=== PATIENT | male | born 1960 | race Caucasian/White ===

== ENCOUNTER 2016-08-15 12:55 | Inpatient (IN) | payer BC, OTHER ==
--- NOTE | 2016-08-15 13:18 | EDPHY ---
H & P Time Seen by Provider: 08/15/16 13:17 HPI/ROS: CHIEF COMPLAINT: Fluid retention HISTORY OF PRESENT ILLNESS: History from patient and . He has a history of cardiomyopathy with ejection fraction about 40% on echo 14 months ago. He was treated by initially Dr. Fox and then by Wilner Talavera. Over the last month he has gained about 50 lb. He is noted swelling in his legs and intermittent shortness of breath. Symptoms moderate to severe but not associated with syncope or coughing. Not positional. No chest pain. No fever or chills. REVIEW OF SYSTEMS: Eye: no change in vision ENT: no sore throat Cardiac: no chest pain or syncope Pulmonary: HPI Abdomen: no vomiting, diarrhea, abdominal pain Musculoskeletal: no back pain Skin: Intermittent brown itchy skin rash on the sides of his abdomen. Neuro: no headache Constitutional: no fever : no urinary symptoms A comprehensive 10 point review of systems is otherwise negative aside from elements mentioned in the history of present illness. PAST MEDICAL HISTORY: Includes cardiomyopathy, type 2 diabetes, hypertension. Social history: , nonsmoker General Appearance: Alert and conversant, cooperative. Eyes: No scleral icterus. ENT, Mouth: Normal mucous membranes. Respiratory: Crackles at both bases but speaks in full sentences, oxygen saturation 83% on room air. Cardiovascular: Irregular rate and rhythm. Gastrointestinal: Abdomen is soft and non tender. Neurological: Alert and oriented x3. Normally conversant. Face symmetric, normal movement and sensation in all extremities. Skin: Venous stasis changes both legs, scattered brownish rash on both flanks. No zoster. Musculoskeletal: 4+ bilateral pedal edema. Psychiatric: Not agitated. Emergency Department course/MDM: Called by Dr. Barbour at 11:40 a.m. prior to arrival. Plan for chest x-ray, EKG. Discussion about anticoagulation given atrial fibrillation. Admission for echocardiography and cardiology consultation, probable diuresis. Dulce from pharmacy at 1340; discussed optimal anticoagulation strategy for afib with patient's weight; she recommends Lovenox 150 mg sq. Admission to hospitalist service. Seen by Dr. Arriaga in the emergency department. Smoking Status: Never smoked Constitutional: Initial Vital Signs Temperature (C) 36.5 C 08/15/16 12:59 Heart Rate 50 L 08/15/16 12:59 Respiratory Rate 18 08/15/16 12:59 Blood Pressure 135/67 H 08/15/16 12:59 O2 Sat (%) 94 08/15/16 12:59 O2 Delivery Mode Room Air Allergies/Adverse Reactions: morphine [Morphine] Allergy (Mild, Verified 04/23/09 13:17) Vomiting Penicillins Allergy (Mild, Verified 04/23/09 13:17) Rash Sulfa (Sulfonamide Antibiotics) Allergy (Mild, Verified 04/23/09 13:17) Rash Home Medications: Medication Instructions Recorded Aspirin [Aspirin 81mg (*)] 81 mg PO HS 04/11/09 Atorvastatin Calcium [Lipitor 20 20 mg PO HS 04/11/09 mg (*)] Digoxin [Lanoxin 250 mcg (RX)] 250 mcg PO HS 04/11/09 Insulin Glargine [Lantus 100 90 units SC HS 04/11/09 UNITS/ML (*)] Lisinopril [Zestril 10 mg (*)] 10 mg PO DAILY 04/11/09 metFORMIN HCL [Glucophage 1000 mg] 1,000 mg PO BIDMEAL 04/11/09 Allopurinol [Allopurinol 300 MG 300 mg PO DAILY 08/15/16 (RX)] Carvedilol [Coreg (*)] 50 mg PO BIDMEAL 08/15/16 Cholecalciferol Vit D3 [Vitamin D3 1,000 units PO DAILY 08/15/16 (*)] Furosemide [Lasix 20 MG (*)] 20 mg PO DAILY 08/15/16 Ibuprofen [Motrin (*)] 800 mg PO DAILY 08/15/16 Insulin Lispro [humALOG LISPRO 100 15 - 40 unit SC TIDMEAL 08/15/16 units/ml (*)] Multivitamins [Multivitamin (*)] 1 each PO DAILY 08/15/16 [place]-3 Fatty Acids [Fish Oil 1000 1,000 mg PO DAILY 08/15/16 mg (*)] amLODIPine BESYLATE [Norvasc 10 mg 10 mg PO DAILY 08/15/16 (*)] Medical Decision Making - Diagnostics EKG Interpretation: 12-lead EKG interpreted by me; official reading is in trace master. My interpretation is atrial fibrillation, PVC, intraventricular conduction delay. Imaging Results: Imaging Impressions Chest X-Ray 08/15/16 13:30 Impression: [id number] CHF. Differential Diagnosis: Differential diagnosis considered for shortness of breath including but not limited to pulmonary infectious process, COPD, asthma, pulmonary embolus and congestive heart failure. Consult/Admit Bed Type: [facility] 134 - Data Points Laboratory Results: Laboratory Results 08/15/16 13:20 08/15/16 13:20 08/15/16 08/15/16 08/15/16 13:20 13:20 13:20 WBC 13.97 10^3/uL H 10^3/uL (3.80-9.50) RBC 5.04 10^6/uL 10^6/uL (4.40-6.38) Hgb 14.7 g/dL g/dL (13.7-17.5) Hct 45.5 % % (40.0-51.0) MCV 90.3 fL fL (81.5-99.8) MCH 29.2 pg pg (27.9-34.1) MCHC 32.3 g/dL L g/dL (32.4-36.7) RDW 15.8 % H % (11.5-15.2) Plt Count 203 10^3/uL 10^3/uL (150-400) MPV 10.3 fL fL (8.7-11.7) Neut % (Auto) 80.1 % H % (39.3-74.2) Lymph % (Auto) 11.1 % L % (15.0-45.0) [place] % (Auto) 6.8 % % (4.5-13.0) Eos % (Auto) 1.0 % % (0.6-7.6) Baso % (Auto) 0.6 % % (0.3-1.7) Nucleat RBC Rel Count 0.0 % % (0.0-0.2) Absolute Neuts (auto) 11.20 10^3/uL H 10^3/uL (1.70-6.50) Absolute Lymphs (auto) 1.55 10^3/uL 10^3/uL (1.00-3.00) Absolute Monos (auto) 0.95 10^3/uL H 10^3/uL (0.30-0.80) Absolute Eos (auto) 0.14 10^3/uL 10^3/uL (0.03-0.40) Absolute Basos (auto) 0.08 10^3/uL 10^3/uL (0.02-0.10) Absolute Nucleated RBC 0.00 10^3/uL 10^3/uL (0-0.01) Immature Gran % 0.4 % % (0.0-1.1) Immature Gran # 0.05 10^3/uL 10^3/uL (0.00-0.10) PT 14.9 SEC SEC (12.0-15.0) INR 1.17 H (0.83-1.16) Sodium 141 mEq/L mEq/L (134-144) Potassium 4.3 mEq/L mEq/L (3.5-5.2) Chloride 111 mEq/L H mEq/L (97-110) Carbon Dioxide 19 mEq/l L mEq/l (22-31) Anion Gap 11 mEq/L mEq/L (8-16) BUN 34 mg/dL H mg/dL (7-23) Creatinine 1.4 mg/dL H mg/dL (0.7-1.3) Estimated GFR 53 Glucose 159 mg/dL H mg/dL (70-100) Calcium 8.8 mg/dL mg/dL (8.5-10.4) Troponin I 0.028 ng/mL ng/mL (0-0.034) NT-Pro-B Natriuret Pep 2330 pg/mL H pg/mL (0-125) Medications Given: Discontinued Medications Enoxaparin Sodium (Lovenox) 150 mg SC EDNOW ONE Stop: 08/15/16 13:47 Last Admin: 08/15/16 13:59 Dose: 150 mg Departure - Departure Disposition: [facility] Clinical Impression: Congestive heart failure Qualifiers: Congestive heart failure type: unspecified congestive heart failure type Congestive heart failure chronicity: acute on chronic Qualified Code(s): I50.9 - Heart failure, unspecified Atrial fibrillation Qualifiers: Atrial fibrillation type: unspecified Qualified Code(s): I48.91 - Unspecified atrial fibrillation Condition: Fair
--- NOTE | 2016-08-15 13:22 | CPEKG ---
Heart Rate: 67 RR Interval: 896 QRSD Interval: 116 QT Interval: 396 QTC Interval: 418 QRS [place]: -71 T Wave [place]: 127 EKG Severity - ABNORMAL ECG - EKG Impression: ATRIAL FIBRILLATION EKG Impression: MULTIFORM VENTRICULAR PREMATURE COMPLEXES EKG Impression: NONSPECIFIC IVCD WITH LAD EKG Impression: INFERIOR INFARCT, AGE INDETERMINATE EKG Impression: ANTERIOR INFARCT, AGE INDETERMINATE Electronically Signed By: Flavio Boone 15-Aug-2016 14:41:39
[2016-08-15 13:37] LABS: % IMMATURE GRANULYOCYTES 0.4 % (0.0-1.1); ABSOLUTE IMMATURE GRANULOCYTES 0.05 10^3/uL (0.00-0.10); ADD DIFF? NO; ADD MORPH? NO; ADD SCAN? NO; ATYPICAL LYMPHOCYTE FLAG 0 (0-99); FRAGMENT RBC FLAG 0 (0-99); HEMATOCRIT 45.5 % (40.0-51.0); HEMOGLOBIN 14.7 g/dL (13.7-17.5); LEFT SHIFT FLG 0 (0-99); LIPEMIA HEMOLYSIS FLAG 80 (0-99); MEAN CELL HEMOGLOBIN 29.2 pg (27.9-34.1); MEAN CELL HEMOGLOBIN CONCENTR. 32.3 g/dL (32.4-36.7); MEAN CELL VOLUME 90.3 fL (81.5-99.8); MEAN PLATELET VOLUME 10.3 fL (8.7-11.7); PLATELET CLUMPS FLAG 0 (0-99); PLATELET COUNT 203 10^3/uL (150-400); RED BLOOD CELL COUNT 5.04 10^6/uL (4.40-6.38); RED CELL DISTRIBUTION WIDTH 15.8 % (11.5-15.2)
[2016-08-15] MEDS ORDERED: ENOXAPARIN 150 MG/ML SYR SC ONE (13:46)
[2016-08-15 13:48] LABS: INR 1.17 (0.83-1.16); PROTIME(PATIENT) 14.9 SEC (12.0-15.0)
[2016-08-15 13:51] LABS: ANION GAP 11 mEq/L (8-16); CALCIUM 8.8 mg/dL (8.5-10.4); CARBON DIOXIDE 19 mEq/l (22-31); CHLORIDE 111 mEq/L (97-110); CREATININE 1.4 mg/dL (0.7-1.3); GLOMERULAR FILTRATION RATE 53; GLUCOSE 159 mg/dL (70-100); POTASSIUM 4.3 mEq/L (3.5-5.2); SODIUM 141 mEq/L (134-144)
[2016-08-15 14:02] LABS: TROPONIN I 0.028 ng/mL (0-0.034)
[2016-08-15] MEDS ORDERED: ONDANSETRON DISINTEGRATING 4 MG TAB PO PRN (15:26)
[2016-08-15] MEDS ORDERED: ONDANSETRON 4 MG/2 ML VIAL IVP PRN (15:26)
[2016-08-15] MEDS: FUROSEMIDE 40 MG/4 ML VIAL IVP SCH (16:00)
--- NOTE | 2016-08-15 17:15 | GHP ---
[f rep st] HISTORY AND PHYSICAL DATE OF ADMISSION: 08/15/2016 CHIEF COMPLAINT: Swelling. HISTORY OF PRESENT ILLNESS: This is a 56-year-old male with multiple medical comorbidities includin g a long-standing cardiomyopathy, hypertension, diabetes, who presents with progressive weight gain, abdominal girth distention, and lower extremity edema which he reports has been occurring over the course of the last month. His reports it has been occurring over the last 4 months. The patie nt reports that he is close to 40 to 50 pounds up from what he believes is more appropriately his dr y weight. He has experienced increased dyspnea on exertion, orthopnea. He denies any chest pain. Denies any palpitations. Denies any headache, vision changes, dizziness. Denies any diarrhea, bloo d in his stools, dysuria, or hematuria. He has been experiencing notable lower extremity edema, whi ch at times can be uncomfortable. He has terrible osteoarthritic knees which has been quite a chall enge in the setting of increased weight gain. He is now ambulating with two canes rather than indep endently. PAST MEDICAL HISTORY: 1. Cardiomyopathy, managed by Dr. Talavera and Dr. Fox. 2. Diabetes mellitus. 3. Hypertension. 4. Gout. 5. Hyperlipidemia. 6. Obstructive sleep apnea. 7. Morbid obesity. SOCIAL HISTORY: Negative for tobacco, alcohol, or illicit drugs. FAMILY HISTORY: Positive for diabetes. ADVANCED DIRECTIVES: The patient wishes to be full cor, full tube. His would be his medical d ecision maker. REVIEW OF SYSTEMS: A 10-point review of systems is negative with the exception of that reported in the HPI. PHYSICAL EXAMINATION: VITAL SIGNS: Blood pressure 129/75, heart rate 63, respiratory rate 16, satu rating 91% on 5 L, 36.4. GENERAL: This is an obese male, sitting up in bed. HEENT: Notable for a lot of redundant neck tissue. Mucous membranes are moist. Eye exam is negative for any icterus. CARDIAC: Heart sounds are distant, but irregular. PULMONARY: Has good respiratory effort. Has cr ackles at bilateral bases. GASTROINTESTINAL: The patient has marked abdominal distention. Positiv e bowel sounds, is nontender in all 4 quadrants. MUSCULOSKELETAL: Positive for 3+ lower extremity edema. SKIN: Negative for any rashes. NEUROLOGIC: He is alert and oriented x3. PSYCHIATRIC: He is pleasant and cooperative on interview and examination. DATA: White count is 13.9. INR 1.1. Creatinine 1.4, last check 0.8 in January of 2016. BUN 34, glucose is 159, calcium 8.8. BNP 2330, last checked 83. Troponin 0.028. Chest x-ray, which I pers onally reviewed and interpreted, shows pulmonary vascular redistribution consistent with heart failu re. EKG, which I personally reviewed and interpreted, shows atrial fibrillation with an intraventri cular conduction delay and left axis deviation, no acute ST-T changes. ASSESSMENT AND PLAN: This is a 56-year-old male with a cardiomyopathy presenting with volume overlo ad. 1. Acute presumed biventricular heart failure. We do not have echo in the system. We will order o ne this evening and initiate IV diuretics carefully 40 mg b.i.d. as the patient does have a bump in his renal function since last checked. I have made Dr. Talavera aware of the patient's hospitalization. Will continue his cardiac medications, checking a digoxin level in the setting of acute kidney inj ury. I am hopeful if we can optimize his cardiac physiology, his renal function will improve. 2. Acute hypoxic respiratory failure, presumed secondary to volume overload secondary to heart fail ure. Again, will initiate careful IV diuresis and monitor the patient's progress with strict ins an d outs. 3. Acute leukocytosis. Not quite clear if this is truly a marker of infection as the patient has l imited symptoms. Will send a urinalysis. Chest x-rays unconcerning for pneumonia. 4. Diabetes type 2. The patient uses high doses of insulin at home which we will continue. I will send a hemoglobin A1c. Will cover with high-dose sliding scale in addition to his evening doses of Lantus. We will hold metformin as the patient may require imaging with contrast during this hospit al stay. 5. Atrial fibrillation. Patient denies having been diagnosed with atrial fibrillation in the past. He has received enoxaparin 150 mg in the emergency department. His [id number] score is quite el evated. He would qualify for long-term anticoagulation. Suspect a novel anticoagulant will be kaylyn mmended for him. Will wait until Dr. Talavera is able to see the patient before we initiate further blo od thinners. 6. Hypertension. Will continue his home medications minus the ROMAINE inhibitor in the setting of acut e kidney injury. 7. Acute kidney injury. Patient did describe taking higher doses of Lasix at home and I noticed NS AIDs on his medication list. It is very possible that this is multifactorial. It may be poor perfu malik from his heart failure as well. Would not be safe to fluid resuscitate this patient at this ti me. Will initiate careful diuresis and monitor his renal function closely. I am hopeful if we opti helen his cardiac parameters, we will see an improvement in his renal function. Have, again, ordered an ultrasound of his heart to better estimate his current ejection fraction. Will additionally ord er a renal ultrasound to make sure we are not dealing with an intrarenal process as well. Urinalysi s has been ordered as well. 8. Gout. Will continue his allopurinol. 9. Prophylaxis. The patient received enoxaparin. Will wait on additional until decisions related to atrial fibrillation, anticoagulation are made in the morning. DIET: Cardiac. DISPOSITION: I expect greater than 2 midnights as the patient likely will have many days of IV diur esis necessary to help manage his volume overload from acute heart failure. I have discussed the case with the emergency room physician. Patient will be triaged to the PCU for cardiac care. /[id number]/MODL
[2016-08-15] MEDS ORDERED: CARVEDILOL 25 MG TAB PO SCH (18:00)
[2016-08-15] MEDS ORDERED: D50W 25 GM/50 ML SYR IVP PRN (20:06)
[2016-08-15] MEDS ORDERED: DIGOXIN 250 MCG TAB PO SCH (21:00)
[2016-08-15] MEDS: ATORVASTATIN CALCIUM 20 MG TAB PO SCH (21:27)
[2016-08-15] MEDS: ASPIRIN 81 MG CHEWABLE TAB PO SCH (21:27)
[2016-08-15] MEDS: INSULIN GLARGINE 100 UNITS/ML SYRINGE SC SCH (21:27)
[2016-08-15] MEDS: INSULIN REGULAR HUMAN 100 UNIT/ML SC SCH (21:28)
[2016-08-16 05:23] LABS: % IMMATURE GRANULYOCYTES 0.3 % (0.0-1.1); ABSOLUTE IMMATURE GRANULOCYTES 0.03 10^3/uL (0.00-0.10); ADD DIFF? NO; ADD MORPH? NO; ADD SCAN? NO; ATYPICAL LYMPHOCYTE FLAG 0 (0-99); FRAGMENT RBC FLAG 0 (0-99); HEMATOCRIT 43.6 % (40.0-51.0); HEMOGLOBIN 13.7 g/dL (13.7-17.5); LEFT SHIFT FLG 0 (0-99); LIPEMIA HEMOLYSIS FLAG 80 (0-99); MEAN CELL HEMOGLOBIN 28.6 pg (27.9-34.1); MEAN CELL HEMOGLOBIN CONCENTR. 31.4 g/dL (32.4-36.7); MEAN PLATELET VOLUME 10.4 fL (8.7-11.7); PLATELET CLUMPS FLAG 0 (0-99); PLATELET COUNT 179 10^3/uL (150-400); RED BLOOD CELL COUNT 4.79 10^6/uL (4.40-6.38); RED CELL DISTRIBUTION WIDTH 15.7 % (11.5-15.2)
[2016-08-16 05:53] LABS: ANION GAP 10 mEq/L (8-16); CALCIUM 8.1 mg/dL (8.5-10.4); CARBON DIOXIDE 20 mEq/l (22-31); CHLORIDE 111 mEq/L (97-110); CREATININE 1.3 mg/dL (0.7-1.3); GLOMERULAR FILTRATION RATE 58; GLUCOSE 118 mg/dL (70-100); POTASSIUM 3.9 mEq/L (3.5-5.2); SODIUM 141 mEq/L (134-144)
[2016-08-16] MEDS: INSULIN REGULAR HUMAN 100 UNIT/ML SC SCH ×4 (07:45→21:34)
[2016-08-16] MEDS: FUROSEMIDE 40 MG/4 ML VIAL IVP SCH ×2 (08:17→15:42)
[2016-08-16] MEDS: MULTIVITAMINS 1 EACH TAB PO SCH (08:19)
[2016-08-16] MEDS: ALLOPURINOL 300 MG TAB PO SCH (08:20)
[2016-08-16] MEDS: OMEGA-3 FATTY ACIDS 1,000 MG CAP PO SCH (08:20)
[2016-08-16] MEDS: CHOLECALCIFEROL VIT D3 1,000 UNITS TAB PO SCH (08:21)
--- NOTE | 2016-08-16 10:33 | PDCARCONS ---
Cardiology Consult Reason for Consult: Acute congestive heart failure exacerbation Chief Complaint: Shortness of breath and weight gain Requesting Physician: Hospitalists History of Present Illness: Patient is a 56 y/o male with history of CMP (non ischaemic by angiography " many years ago", typically followed by [facility]) with ejection fraction of 40% by echocardiogram in the past, HTN, HLP, GENESIS with CPAP use, ARF (acute), DM ( ongoing work with endocrinology for better management; neuropathy has been noted without podiatry follow up), and obesity, who presented to [facility] with complaints of weight gain (about 50 pounds) over 6 weeks to 3 months ( variability given patient's report, and 's report), shortness of breath, PND , orthopnea, and weakness. Work up in the ER with newly noted atrial fibrillation (and slow ventricular response). No chest pains or pressure have been noted. Compliance with medical therapy has been good. Being that the patient is a [facility] patient we do not have the most recent outpatient notes, but the patient is able to give a good history. Last night, the patient was given Lasix IV at 40 mg with little to no change in weights (or urine output) overnight. One dose of Lovenox (150 mg) was given the ER with the newly noted atrial fibrillation ([id number] score of 3 for CHF , HTN, and DM). 12 point review of systems is otherwise unremarkable outside of that which was mentioned above History Information - Allergies/Home Medication List Allergies/Adverse Reactions: morphine [Morphine] Allergy (Mild, Verified 04/23/09 13:17) Vomiting Penicillins Allergy (Mild, Verified 04/23/09 13:17) Rash Sulfa (Sulfonamide Antibiotics) Allergy (Mild, Verified 04/23/09 13:17) Rash Home Medications: Aspirin [Aspirin 81mg (*)] 81 mg PO HS 04/11/09 [Last Taken 08/14/16] Atorvastatin Calcium [Lipitor 20 mg (*)] 20 mg PO HS 04/11/09 [Last Taken ] Digoxin [Lanoxin 250 mcg (RX)] 250 mcg PO HS 04/11/09 [Last Taken 08/14/16] Insulin Glargine [Lantus 100 UNITS/ML (*)] 90 units SC HS 04/11/09 [Last Taken 08/14/16] Lisinopril [Zestril 10 mg (*)] 10 mg PO DAILY 04/11/09 [Last Taken 08/15/16] metFORMIN HCL [Glucophage 1000 mg] 1,000 mg PO BIDMEAL 04/11/09 [Last Taken 07/27] Allopurinol [Allopurinol 300 MG (RX)] 300 mg PO DAILY 08/15/16 [Last Taken 08/15] Carvedilol [Coreg (*)] 50 mg PO BIDMEAL 08/15/16 [Last Taken 08/15/16] Cholecalciferol Vit D3 [Vitamin D3 (*)] 1,000 units PO DAILY 08/15/16 [Last Taken Unknown] Furosemide [Lasix 20 MG (*)] 20 mg PO DAILY 08/15/16 [Last Taken 08/15/16] Ibuprofen [Motrin (*)] 800 mg PO DAILY 08/15/16 [Last Taken 08/15/16] Insulin Lispro [humALOG LISPRO 100 units/ml (*)] 15 - 40 unit SC TIDMEAL [Last Taken 08/14/16] Multivitamins [Multivitamin (*)] 1 each PO DAILY 08/15/16 [Last Taken Unknown] [place]-3 Fatty Acids [Fish Oil 1000 mg (*)] 1,000 mg PO DAILY 08/15/16 [Last Taken Unknown] amLODIPine BESYLATE [Norvasc 10 mg (*)] 10 mg PO DAILY 08/15/16 [Last Taken 07/27] I have personally reviewed and updated: family history, medical history, social history, surgical history - Past Medical History arthritis, CHF, diabetes type 2, hypertension, hyperlipidemia Additional medical history: GENESIS, obesity - Surgical History Reports: no pertinent surgical hx - Family History Positive for: diabetes type II - Social History Smoking Status: Never smoked Alcohol Use: None Drug Use: None Cardiac History - Cardiac History Cardiac Risk Factors: hypertension (>140/90), lipidemia, diabetes mellitus, male Timing/Duration: Weeks Severity: moderate Severity Scale: 4 Activities at Onset: activity Modifying Factors: improves with: oxygen, rest Associated Symptoms: shortness of breath, weakness JUANPABLO Risk Evaluation age greater or equal to 65: no greater or equal to 3 CAD risk factors: yes known CAD(stenosis greater or eqaul to 50%): no ASA use in past 7 days: yes severe angina(greater or equal to 2 episodes in 24hrs): no EKG ST changes greater or equal to 0.5mm: no positive cardiac marker: no Total Score: 2 JUANPABLO Score: 8.3% risk Age in Years: < 65 Sex: Male (Score of 3 for CHF, HTN, and DM) Physical Exam Temp Pulse Resp BP Pulse Ox 36.3 C 56 L 15 125/64 H 92 08/16/16 07:46 08/16/16 07:46 08/16/16 07:46 08/16/16 07:46 08/16/16 07:46 O2 (L/minute) 5 Constitutional: no apparent distress, obese Eyes: PERRL Ears, Nose, Mouth, Throat: moist mucous membranes, hearing normal Cardiovascular: irregularly irregular, bradycardia, edema, No JVD Peripheral Pulses: 1+: dorsalis-pedis (R), dorsalis-pedis (L) Respiratory: no respiratory distress, reduced air movement, expiratory wheeze, dullness to percussion, No respiratory distress Gastrointestinal: soft, non-tender abdomen Skin: warm, No rash Musculoskeletal: full muscle strength Neurologic: AAOx3, sensation intact bilaterally, CN II-XII Intact Psychiatric: interacting appropriately, not anxious, not encephalopathic Lab and Imaging 08/16/16 05:10 08/16/16 05:10 WBC 10.10 10^3/uL (3.80-9.50) H 08/16/16 05:10 RBC 4.79 10^6/uL (4.40-6.38) 08/16/16 05:10 Hgb 13.7 g/dL (13.7-17.5) 08/16/16 05:10 Hct 43.6 % (40.0-51.0) 08/16/16 05:10 MCV 91.0 fL (81.5-99.8) 08/16/16 05:10 MCH 28.6 pg (27.9-34.1) 08/16/16 05:10 MCHC 31.4 g/dL (32.4-36.7) L 08/16/16 05:10 RDW 15.7 % (11.5-15.2) H 08/16/16 05:10 Plt Count 179 10^3/uL (150-400) 08/16/16 05:10 MPV 10.4 fL (8.7-11.7) 08/16/16 05:10 Neut % (Auto) 72.5 % (39.3-74.2) 08/16/16 05:10 Lymph % (Auto) 13.9 % (15.0-45.0) L 08/16/16 05:10 [place] % (Auto) 10.2 % (4.5-13.0) 08/16/16 05:10 Eos % (Auto) 2.6 % (0.6-7.6) 08/16/16 05:10 Baso % (Auto) 0.5 % (0.3-1.7) 08/16/16 05:10 Nucleat RBC Rel Count 0.0 % (0.0-0.2) 08/16/16 05:10 Absolute Neuts (auto) 7.33 10^3/uL (1.70-6.50) H 08/16/16 05:10 Absolute Lymphs (auto) 1.40 10^3/uL (1.00-3.00) 08/16/16 05:10 Absolute Monos (auto) 1.03 10^3/uL (0.30-0.80) H 08/16/16 05:10 Absolute Eos (auto) 0.26 10^3/uL (0.03-0.40) 08/16/16 05:10 Absolute Basos (auto) 0.05 10^3/uL (0.02-0.10) 08/16/16 05:10 Absolute Nucleated RBC 0.00 10^3/uL (0-0.01) 08/16/16 05:10 Immature Gran % 0.3 % (0.0-1.1) 08/16/16 05:10 Immature Gran # 0.03 10^3/uL (0.00-0.10) 08/16/16 05:10 PT 14.9 SEC (12.0-15.0) 08/15/16 13:20 INR 1.17 (0.83-1.16) H 08/15/16 13:20 Sodium 141 mEq/L (134-144) 08/16/16 05:10 Potassium 3.9 mEq/L (3.5-5.2) 08/16/16 05:10 Chloride 111 mEq/L (97-110) H 08/16/16 05:10 Carbon Dioxide 20 mEq/l (22-31) L 08/16/16 05:10 Anion Gap 10 mEq/L (8-16) 08/16/16 05:10 BUN 34 mg/dL (7-23) H 08/16/16 05:10 Creatinine 1.3 mg/dL (0.7-1.3) 08/16/16 05:10 Estimated GFR 58 08/16/16 05:10 Glucose 118 mg/dL (70-100) H 08/16/16 05:10 POC Glucose 125 mg/dL (70-100) H 08/16/16 02:47 Calcium 8.1 mg/dL (8.5-10.4) L 08/16/16 05:10 Troponin I 0.026 ng/mL (0-0.034) 08/15/16 18:05 NT-Pro-B Natriuret Pep 2330 pg/mL (0-125) H 08/15/16 13:20 TSH 2.520 uIU/mL (0.465-4.680) 08/16/16 05:10 Digoxin 1.7 ng/mL (0.8-2.0) 08/15/16 16:05 Visualized and Interpreted Chest x-ray results: Yes Chest X-ray Interpretation: no infiltrate, other (cardiomegaly with effusion and evidence to suggest "mild to moderate" heart failure) EKG additional interpertation: atrial fibrillation with slow ventricular response Telemetry: atrial fibrillation with slow ventricular response Echocardiogram: cardiomyopathy with ejection fraction of 35-40%. no gross valve pathology was noted . there appears to be a large thrombus to the left ventricular apex. plan on definity study to better image the apex of the heart given the patient' s morphology/habitus A/P Assessment: 56 y/o male with history of non ischaemic CMP (EF 40%), HTN, DM, GENESIS with CPAP use, with admission for congestive heart failure exacerbation. Newly noted atrial fibrillation ([id number] score of 3) with single dose of Lovenox rendered in the ER. Echocardiogram without drop in systolic function noted, but with concerning echo evidence for left ventricular apical thrombus. Weight gain of over 40 pounds over several months. No chest pains. No ECG changes consistent with ischamia. No cardiac biomarker elevation. Plan: Cardiovascular recommendations: (1) Cessation of digoxin (2) Hold on Coreg (likely resumption at lower dose ... 25 mg twice per day) - given bradycardia at present in setting of "acute" CHF, would refrain from this therapy at present (3) IV lasix at 80 mg (from 40 mg) - close I/O following - daily weights (4) Concerns about LV apical thrombus being addressed with Definity echo assessment (5) Lovenox 150 mg SQ twice per day (6) Would maintain therapy on norvasc (10 mg) for the time being for assistance with HTN (7) Continue therapy on ASA given CV risks (8) Statins to continue with HLP history (9) Would arrange for Isi MPI - patient likely will need an angiogram, but would diuresis and monitor renal function - no indication for emergent angiography, but patient's CV risks (age, sex, HTN , HLP, DM, "new" CHF), this testing is likely indicated - - use of the MPI to "map" the patient's coronary anatomy prior to pursuit of invasive CV testing (10) Maintain CPAP use with GENESIS - this being a large risk for the ongoing atrial fibrillation (11) We will continue to follow this patient
[2016-08-16] MEDS ORDERED: PERFLUTREN LIPID MICROSPHERES 1.1 MG/ML VIAL IV ONE (10:45)
[2016-08-16] MEDS ORDERED: FUROSEMIDE 40 MG/4 ML VIAL IVP ONE (11:02)
--- NOTE | 2016-08-16 11:21 | HOSPPROG ---
Hospitalist Progress Note Assessment/Plan: # acute on chronic CHF, systolic and diastolic - d/t a-fib, possible ischemia with new akinetic apex - possible LV thrombus - lovenox, repeat echo with definity - akinetic apex - needs ischemic eval per cards - more aggressive diuresis today - cont lasix 40 iv bid, additional lasix 40 iv today - hold coreg/digoxin with bradycardia # DM2 - glargine 90, glucs ok # NIA - follow with diuresis - no nephrotixins, consider dose reduce allopurinol and lovenox # chronic gout - allopurinol # htn - hold lisino, cont norvasc # leukocytosis - d/t stress, doubt infection Subjective: not responding to lasix since yesterday; no CP Objective: Vital Signs Temp Pulse Resp BP Pulse Ox 36.3 C 56 L 15 125/64 H 92 08/16/16 07:46 08/16/16 07:46 08/16/16 07:46 08/16/16 07:46 08/16/16 07:46 Laboratory Results 08/16/16 05:10 08/16/16 05:10 08/15/16 08/16/16 08/17/16 05:59 05:59 05:59 Intake Total 750 240 Output Total 625 375 Balance 125 -135 PT 14.9 SEC (12.0-15.0) 08/15/16 13:20 INR 1.17 (0.83-1.16) H 08/15/16 13:20 new pt to me discussed with Dr Cerda CXR personally viewed/interpreted - Physical Exam Constitutional: other (anasarca) Cardiovascular: no murmur, rub, or gallop, irregularly irregular Respiratory: no respiratory distress, no rales or rhonchi, clear to auscultation Gastrointestinal: normoactive bowel sounds, soft, non-tender abdomen, no palpable masses ICD10 Worksheet Patient Problems: Problems Problem Status Onset Atrial fibrillation Acute Congestive heart failure Acute
--- NOTE | 2016-08-16 14:34 | ECHO ---
[id number] + + [address] : : [place] [address] : : [phone] + Adult Echocardiographic Report + -----+ :Name: DEE BUTTERFIELD LStudy Date: 08/16/2016 08:31 AM : : Hospital Admission Number: [id number] Location : 223: :: 1960 Gender: Male Height: 63 in : :Age: 56 yrs Race: WH Weight: 315 lb : :Reason For Study: Eval LV Fx : : BSA: 2.3 meters2 : :History: Edema, New onset A-fib : + -----+ MMode/2D Measurements \T\ Calculations IVSd: 1.4 cm LVIDd: 6.8 cm FS: 21.9 % Ao root diam: 3.6 cm LVPWd: 1.3 cm LVIDs: 5.3 cm EDV(Teich): 240.2 ml ACS: 2.4 cm ESV(Teich): 136.7 ml EF(Teich): 43.1 % Normal Measurement Values: + + :LVIDd (3.5-5.7cm) IVSd (0.6-1.1cm) LVPWd (0.6-1.1cm) Aortic Root (2.0-3.7cm)Left Atrium (1.5-4.0cm): :LV Vol(d) (76-115ml) LV Vol(s) (29-48ml) Ejec Fraction (50-65%)PV Layo (0.6- 1.2m/s) TV Layo (0.4-1.0m/s) : :MV E Layo (0.8-1.0m/s)MV A Layo (0.3-1.0m/s)LVOT Layo (0.7-1.2m/s) Asc Ao Layo ( 0.9-1.8m/s) : + + Doppler Measurements \T\ Calculations MV E max layo: Ao V2 max: LV V1 max: PA V2 max: 124.4 cm/sec 119.4 cm/sec 65.6 cm/sec 101.8 cm/sec MV A max layo: Ao max PG: LV V1 max PG: PA max P.8 cm/sec 5.7 mmHg 1.7 mmHg 4.1 mmHg MV E/A: 2.3 Left Ventricle The left ventricle is normal in size. Definity imaging enhancer was utilitzed and there is on evidence of apical thrombus. There is mild concentric left ventricular hypertrophy. Ejection Fraction = 40%. There is Doppler evidence for diastolic dysfunction. The rhythm is atrial fibrillation. apical hypokinesis. Right Ventricle The right ventricle is normal in size and function. Atria The left atrium is mildly dilated. The right atrium is borderline dilated. Mitral Valve The mitral valve is normal. There is no mitral regurgitation noted. Tricuspid Valve Normal tricuspid valve. No tricuspid regurgitation. Aortic Valve The aortic valve opens well. There is no aortic stenosis. There is no aortic insufficiency. Pulmonic Valve The pulmonic valve is not well visualized. Great Vessels The aortic root is normal size. Pericardium/Pleural There is no pericardial effusion. Conclusion A complete two-dimensional transthoracic echocardiogram was performed (2D, M-mode, Doppler and color flow Doppler). (1) Left ventricular systolic ejection fraction was mildly reduced (40%) - apical hypokinesis was noted (2) Mild concentric left ventricular hypertrophy (3) Diastolic dysfunction was present - patient was in atrial fibrillation (with slow ventricular response) over the course of this study (4) Grossly normal right ventricular size and function (5) Mild left atrial dilation with borderline right atrial dilation (6) No mitral regurgitation (7) Poor visualization of the aortic valve (likely trileaflet) without appreciable stenosis or insufficiency noted (8) Grossly normal tricuspid valve (9) Poor visualization of the pulmonic valve (10) No pericardial effusion Final Reading Physician: Sherley Grissom signed on 08/16/2016 02:32 PM Ordering Physician: Gracia Arriaga Performed By: Quinton Canales, ROBINSONCS
[2016-08-16] MEDS: ATORVASTATIN CALCIUM 20 MG TAB PO SCH (21:33)
[2016-08-16] MEDS: ASPIRIN 81 MG CHEWABLE TAB PO SCH (21:33)
[2016-08-16] MEDS: INSULIN GLARGINE 100 UNITS/ML SYRINGE SC SCH (21:33)
[2016-08-16] MEDS: ENOXAPARIN 150 MG/ML SYR SC SCH (21:34)
[2016-08-17 05:50] LABS: ANION GAP 9 mEq/L (8-16); CALCIUM 8.1 mg/dL (8.5-10.4); CARBON DIOXIDE 23 mEq/l (22-31); CHLORIDE 112 mEq/L (97-110); CREATININE 1.1 mg/dL (0.7-1.3); GLOMERULAR FILTRATION RATE > 60; GLUCOSE 68 mg/dL (70-100); POTASSIUM 3.7 mEq/L (3.5-5.2); SODIUM 144 mEq/L (134-144)
[2016-08-17] MEDS: INSULIN REGULAR HUMAN 100 UNIT/ML SC SCH ×4 (08:19→21:27)
[2016-08-17] MEDS: OMEGA-3 FATTY ACIDS 1,000 MG CAP PO SCH (09:09)
[2016-08-17] MEDS: CHOLECALCIFEROL VIT D3 1,000 UNITS TAB PO SCH (09:09)
[2016-08-17] MEDS: ALLOPURINOL 300 MG TAB PO SCH (09:09)
[2016-08-17] MEDS: FUROSEMIDE 40 MG/4 ML VIAL IVP SCH ×2 (09:09→16:43)
[2016-08-17] MEDS: MULTIVITAMINS 1 EACH TAB PO SCH (09:09)
[2016-08-17] MEDS: ENOXAPARIN 150 MG/ML SYR SC SCH ×2 (09:09→20:22)
--- NOTE | 2016-08-17 10:45 | HOSPPROG ---
Hospitalist Progress Note Assessment/Plan: # acute on chronic CHF, systolic and diastolic - d/t a-fib, possible ischemia with new akinetic apex - no LV thrombus after definity echo - akinetic apex - needs ischemic eval per cards - more aggressive diuresis today - cont lasix 40 iv bid, additional lasix 40 iv today - hold coreg/digoxin with bradycardia - need to restart lisinopril - possibly tomorrow and check renin/tata before # sister with hyperAldo # DM2 - glargine 90, glucs ok # NIA - better with diuresis - no nephrotoxins, consider dose reduce allopurinol and lovenox # chronic gout - allopurinol # htn - hold lisino, cont norvasc # leukocytosis - d/t stress, doubt infection Subjective: legs feel slightly better Objective: Vital Signs Temp Pulse Resp BP Pulse Ox 36.5 C 61 24 H 128/91 H 91 L 08/17/16 08:00 08/17/16 08:00 08/17/16 08:00 08/17/16 08:00 08/17/16 08:00 Laboratory Results 08/16/16 05:10 08/17/16 05:00 08/16/16 08/17/16 08/18/16 05:59 05:59 05:59 Intake Total 750 1640 Output Total 625 2875 200 Balance 125 -1235 -200 PT 14.9 SEC (12.0-15.0) 08/15/16 13:20 INR 1.17 (0.83-1.16) H 08/15/16 13:20 - Physical Exam Constitutional: no apparent distress, other (anasarca) Cardiovascular: regular rate and rhythym, no murmur, rub, or gallop Respiratory: no respiratory distress, inspiratory crackles (bilat bases), No reduced air movement, No expiratory wheeze Gastrointestinal: normoactive bowel sounds, ascites, distension, No tenderness ICD10 Worksheet Patient Problems: Problems Problem Status Onset Congestive heart failure Acute Atrial fibrillation Acute
--- NOTE | 2016-08-17 15:14 | PDCARPN ---
Cardiology Progress Note Chief Complaint: No complaints were voiced today. Assessment/Plan: Assessment: 08-17-16 Patient doing well today. Weight loss overnight of about 1.2 kg. Patient was working with PT this morning. Ambulation in the sewell has been well tolerated. No complaints of chest pains or pressure. Heart rates on telemetry have improved (from low 50's to 70's today). Ongoing hold on the Coreg and digoxin. Further improvement in renal function has been noted (Cr to 1.2 today). 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 with complaints of weight gain (about 50 pounds) over 6 weeks to 3 months ( variability given patient's report, and 's report), shortness of breath, PND , orthopnea, and weakness. Work up in the ER with newly noted atrial fibrillation (and slow ventricular response). No chest pains or pressure have been noted. Compliance with medical therapy has been good. Being that the patient is a [facility] [place] we do not have the most recent outpatient notes, but the patient is able to give a good history. Last night, the patient was given Lasix IV at 40 mg with little to no change in weights (or urine output) overnight. One dose of Lovenox (150 mg) was given the ER with the newly noted atrial fibrillation ([id number] score of 3 for CHF , HTN, and DM). Plan: (1) Would continue the higher dose of lasix in the mornings (2) Follow electrolytes (3) Strict ins and outs and daily weights (4) Ambulation to continue as this is helpful for mobilization of fluids as well (5) Maintain hold on Coreg and Digoxin for the time being (6) Patient should still have MPI testing prior to discharge, and would also consider angiography given the CV risks and the presentation ("new" CHF) Subjective: No cardiovascular complaints Reviewed/Discussed With: family, hospitalist, multidisciplinary team Objective: Vital Signs (8 Hrs) Temp Pulse Resp BP Pulse Ox 08/17/16 12:00 36.5 C 72 11 L 138/75 H 94 08/17/16 08:00 36.5 C 61 24 H 128/91 H 91 L Intake/Output (24 Hrs) 08/16/16 08/17/16 08/18/16 05:59 05:59 05:59 Intake Total 750 1640 Output Total 625 2875 450 Balance 125 -1235 -450 Intake: Oral (ml) 750 1640 Output: Urine (ml) 625 2875 450 Urinal 625 2875 450 Other: Weight 138.8 kg 137.7 kg Intake Quantity Yes Yes Sufficient Number of Voids Urinal 1 1 2 Number of Stools Urinal 1 Result Diagrams: 08/16/16 05:10 08/17/16 05:00 Cardiac Labs: Cardiac Lab Results (72 Hrs) 08/15/16 18:05 Troponin I 0.026 EKG: atrial fibrillation with controlled ventricular response Telemetry: atrial fibrillation - Physical Exam Constitutional: healthy appearing, obese Eyes: PERRL Ears, Nose, Mouth, Throat: moist mucous membranes Cardiovascular: no murmurs, no rubs, no gallops, irregularly irregular Peripheral Pulses: 2+: dorsalis-pedis (R), dorsalis-pedis (L) Respiratory: no crackles, no wheezes, reduced air movement Gastrointestinal: normoactive bowel sounds Skin: no rashes, other (ongoing edema noted to bilateral lower extremities) Musculoskeletal: no muscular tenderness Neurologic: AAOx3, CN II-XII grossly intact Psychiatric: cooperative, interactive, following commands ICD10 Worksheet Patient Problems: Problems Problem Status Onset Atrial fibrillation Acute Congestive heart failure Acute
[2016-08-17] MEDS ORDERED: POTASSIUM CL 20 MEQ TAB PO ONE (16:00)
[2016-08-17] MEDS: ASPIRIN 81 MG CHEWABLE TAB PO SCH (20:22)
[2016-08-17] MEDS: ATORVASTATIN CALCIUM 20 MG TAB PO SCH (20:22)
[2016-08-17] MEDS: ACETAMINOPHEN 325 MG TAB PO PRN (20:27)
[2016-08-17] MEDS: INSULIN GLARGINE 100 UNITS/ML SYRINGE SC SCH (21:27)
[2016-08-18] MEDS: INSULIN REGULAR HUMAN 100 UNIT/ML SC SCH ×4 (08:11→21:23)
[2016-08-18] MEDS: OMEGA-3 FATTY ACIDS 1,000 MG CAP PO SCH (08:28)
[2016-08-18] MEDS: ENOXAPARIN 150 MG/ML SYR SC SCH ×2 (08:28→20:40)
[2016-08-18] MEDS: ALLOPURINOL 300 MG TAB PO SCH (08:28)
[2016-08-18] MEDS: MULTIVITAMINS 1 EACH TAB PO SCH (08:28)
[2016-08-18] MEDS: CHOLECALCIFEROL VIT D3 1,000 UNITS TAB PO SCH (08:28)
[2016-08-18] MEDS: FUROSEMIDE 40 MG/4 ML VIAL IVP SCH ×2 (08:28→16:05)
--- NOTE | 2016-08-18 08:56 | HOSPPROG ---
Hospitalist Progress Note Assessment/Plan: # acute on chronic CHF, systolic and diastolic - d/t a-fib, possible ischemia with new akinetic apex: diuresing well - akinetic apex - needs ischemic eval per cards - cont lasix 40 iv bid - high risk medicine - holding dig and coreg - will d/w cards restarting coreg today - hold lisinopril - restart soon # sister with hyperAldo - check renin/tata # DM2 - hypoglycemic overnight - glargine 90->70 today # NIA - resolving; need to get labs today # chronic gout - allopurinol # htn - hold lisino, cont norvasc # leukocytosis - d/t stress, doubt infection Subjective: hypoglycemic and symptomatic overnight; responding to lasix Objective: Vital Signs Temp Pulse Resp BP Pulse Ox 36.6 C 71 23 H 135/81 H 92 08/18/16 07:44 08/18/16 07:44 08/18/16 07:44 08/18/16 07:44 08/18/16 07:44 Laboratory Results 08/16/16 05:10 08/17/16 05:00 08/17/16 08/18/16 08/19/16 05:59 05:59 05:59 Intake Total 1640 500 Output Total 2875 2775 Balance -1235 -2275 PT 14.9 SEC (12.0-15.0) 08/15/16 13:20 INR 1.17 (0.83-1.16) H 08/15/16 13:20 tele reviewed - a-fib - Physical Exam Constitutional: no apparent distress, appears nourished Cardiovascular: no murmur, rub, or gallop, irregularly irregular, edema (4+) Respiratory: no respiratory distress, inspiratory crackles (bila bases), No expiratory wheeze, No rhonchi Gastrointestinal: normoactive bowel sounds, soft, non-tender abdomen, no palpable masses ICD10 Worksheet Patient Problems: Problems Problem Status Onset Congestive heart failure Acute Atrial fibrillation Acute
[2016-08-18 09:36] LABS: ANION GAP 13 mEq/L (8-16); CALCIUM 8.4 mg/dL (8.5-10.4); CARBON DIOXIDE 24 mEq/l (22-31); CHLORIDE 108 mEq/L (97-110); CREATININE 0.9 mg/dL (0.7-1.3); GLOMERULAR FILTRATION RATE > 60; GLUCOSE 140 mg/dL (70-100); SODIUM 145 mEq/L (134-144)
--- NOTE | 2016-08-18 11:34 | PDCARPN ---
Cardiology Progress Note Chief Complaint: No complaints today. Assessment/Plan: Assessment: 08-18-16 No events overnight. Diuresis continues with weights down another 0.8 kg today. Patient statins that he has been voiding about once per hour. Heart rates are within the normal range. Renal function is normal at present. Electrolytes are normal. Blood pressures are normal. 08-17-16 Patient doing well today. Weight loss overnight of about 1.2 kg. Patient was working with PT this morning. Ambulation in the sewell has been well tolerated. No complaints of chest pains or pressure. Heart rates on telemetry have improved (from low 50's to 70's today). Ongoing hold on the Coreg and digoxin. Further improvement in renal function has been noted (Cr to 1.2 today). 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 Work up in the ER with newly noted atrial fibrillation (and slow ventricular response). No chest pains or pressure have been noted. Compliance with medical therapy has been good. Being that the patient is a [facility] patient we do not have the most recent outpatient notes, but the patient is able to give a good history. Last night, the patient was given Lasix IV at 40 mg with little to no change in weights (or urine output) overnight. One dose of Lovenox (150 mg) was given the ER with the newly noted atrial fibrillation ([id number] score of 3 for CHF , HTN, and DM). Plan: (1) Maintain lasix dosing as at present (2) Would begin low dose ACEi therapy given the blood pressures noted (3) Arrange for Isi MPI today if possible (4) Continue to follow BMP (electrolytes and renal function in particular) (5) Ambulation to continue Subjective: No cardiovascular complaints were voiced today. Reviewed/Discussed With: family, hospitalist, multidisciplinary team Objective: Vital Signs (8 Hrs) Temp Pulse Resp BP Pulse Ox 08/18/16 07:44 36.6 C 71 23 H 135/81 H 92 Intake/Output (24 Hrs) 08/17/16 08/18/16 08/19/16 05:59 05:59 05:59 Intake Total 1640 500 360 Output Total 2875 2775 Balance -1235 -7868 360 Intake: Oral (ml) 1640 500 360 Output: Urine (ml) 2875 2775 Urinal 2875 2775 Other: Weight 137.7 kg 136.9 kg Intake Quantity Yes Sufficient Number of Voids Urinal 1 2 Number of Stools Urinal 1 1 Result Diagrams: 08/16/16 05:10 08/18/16 08:57 Cardiac Labs: Cardiac Lab Results (72 Hrs) 08/15/16 18:05 Troponin I 0.026 Telemetry: atrial fibrillation continues (rates are controlled) - Physical Exam Constitutional: WDWN, no apparent distress, obese Eyes: PERRL, EOMI Ears, Nose, Mouth, Throat: moist mucous membranes Cardiovascular: no rubs, irregularly irregular Peripheral Pulses: 2+: dorsalis-pedis (R), dorsalis-pedis (L) Respiratory: clear to auscultate bilat, reduced air movement Gastrointestinal: normoactive bowel sounds, no tenderness Skin: erythema (to bilateral lower extremities) Musculoskeletal: no muscular tenderness Neurologic: AAOx3, CN II-XII grossly intact Psychiatric: cooperative, interactive, following commands ICD10 Worksheet Patient Problems: Problems Problem Status Onset Atrial fibrillation Acute Congestive heart failure Acute
[2016-08-18] MEDS: ACETAMINOPHEN 325 MG TAB PO PRN (18:03)
[2016-08-18] MEDS: ASPIRIN 81 MG CHEWABLE TAB PO SCH (20:40)
[2016-08-18] MEDS: ATORVASTATIN CALCIUM 20 MG TAB PO SCH (20:40)
[2016-08-18] MEDS: INSULIN GLARGINE 100 UNITS/ML SYRINGE SC SCH (21:23)
[2016-08-19 04:55] LABS: ANION GAP 13 mEq/L (8-16); CALCIUM 8.7 mg/dL (8.5-10.4); CARBON DIOXIDE 27 mEq/l (22-31); CHLORIDE 105 mEq/L (97-110); CREATININE 0.9 mg/dL (0.7-1.3); GLOMERULAR FILTRATION RATE > 60; GLUCOSE 60 mg/dL (70-100); POTASSIUM 3.8 mEq/L (3.5-5.2); SODIUM 145 mEq/L (134-144)
[2016-08-19] MEDS: INSULIN REGULAR HUMAN 100 UNIT/ML SC SCH ×4 (08:11→22:23)
[2016-08-19] MEDS: ACETAMINOPHEN 325 MG TAB PO PRN ×3 (08:22→22:17)
[2016-08-19] MEDS: MULTIVITAMINS 1 EACH TAB PO SCH (08:23)
[2016-08-19] MEDS: OMEGA-3 FATTY ACIDS 1,000 MG CAP PO SCH (08:23)
[2016-08-19] MEDS: ENOXAPARIN 150 MG/ML SYR SC SCH ×2 (08:24→22:15)
[2016-08-19] MEDS: ALLOPURINOL 300 MG TAB PO SCH (08:24)
[2016-08-19] MEDS: CHOLECALCIFEROL VIT D3 1,000 UNITS TAB PO SCH (08:24)
[2016-08-19] MEDS: FUROSEMIDE 40 MG/4 ML VIAL IVP SCH ×2 (08:27→15:15)
--- NOTE | 2016-08-19 10:13 | PDCARPN ---
Cardiology Progress Note Chief Complaint: Neck pains were noted today with continued diuresis Assessment/Plan: Assessment: 08-19-16 Diuresis continues with another kilogram off. The patient "slept wrong" last night, and is having neck muscle pains today. No chest pains or pressure. Voiding continues, per patient, rather aggressively for about 2-3 hours post IV lasix dose. Heart rates continue at about 80-85 bpm. Renal function ( creatinine) is normal. Blood pressures continue to be within normal limits. 08-18-16 No events overnight. Diuresis continues with weights down another 0.8 kg today. Patient statins that he has been voiding about once per hour. Heart rates are within the normal range. Renal function is normal at present. Electrolytes are normal. Blood pressures are normal. 08-17-16 Patient doing well today. Weight loss overnight of about 1.2 kg. Patient was working with PT this morning. Ambulation in the sewell has been well tolerated. No complaints of chest pains or pressure. Heart rates on telemetry have improved (from low 50's to 70's today). Ongoing hold on the Coreg and digoxin. Further improvement in renal function has been noted (Cr to 1.2 today). 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 Work up in the ER with newly noted atrial fibrillation (and slow ventricular response). No chest pains or pressure have been noted. Compliance with medical therapy has been good. Being that the patient is a [facility] patient we do not have the most recent outpatient notes, but the patient is able to give a good history. Last night, the patient was given Lasix IV at 40 mg with little to no change in weights (or urine output) overnight. One dose of Lovenox (150 mg) was given the ER with the newly noted atrial fibrillation ([id number] score of 3 for CHF , HTN, and DM). Plan: (1) Continue IV lasix (2) Metolazone today (2.5 mg PO) (3) Patient wanting to hold off on the Isi MPI until further diuresis has been noted (4) Daily BMP should continue to monitor both electrolytes and renal function (5) Ambulation should continue (6) Discussion about angiography ("new heart failure') was undertaken again today, but no symptoms have been noted, and the patient is doing well with diuresis - I think that it would be important for the patient to have MPI to "map" possible lesions prior to the invasive testing Subjective: No cardiovascular complaints. Neck pains are being noted today (right sided) Reviewed/Discussed With: family, multidisciplinary team Objective: Vital Signs (8 Hrs) Temp Pulse Resp BP Pulse Ox 08/19/16 07:56 90 L 08/19/16 07:28 36.5 C 86 21 H 142/76 H 08/19/16 05:39 37.1 C 79 21 H 140/72 H 90 L Intake/Output (24 Hrs) 08/18/16 08/19/16 08/20/16 05:59 05:59 05:59 Intake Total 500 1560 Output Total 2775 2730 550 Balance -2275 -1170 -550 Intake: Oral (ml) 500 1560 Output: Urine (ml) 2775 2730 550 Urinal 2775 2730 550 Other: Weight 136.9 kg 136.3 kg Intake Quantity Yes Sufficient Number of Voids Urinal 2 Number of Stools Urinal 1 Result Diagrams: 08/16/16 05:10 08/19/16 03:56 Telemetry: atrial fibrillation - Physical Exam Constitutional: no apparent distress, obese, No general pain Eyes: PERRL, EOMI Ears, Nose, Mouth, Throat: moist mucous membranes Cardiovascular: no murmurs, no rubs, no gallops, irregularly irregular Peripheral Pulses: 1+: dorsalis-pedis (R), dorsalis-pedis (L) Respiratory: reduced air movement, inspiratory crackles, dullness to percussion (in bases) Gastrointestinal: normoactive bowel sounds Skin: other (moderate bilateral lower extremity edema) Musculoskeletal: muscular tenderness (right neck) Neurologic: AAOx3, CN II-XII grossly intact Psychiatric: cooperative, interactive, following commands ICD10 Worksheet Patient Problems: Problems Problem Status Onset Atrial fibrillation Acute Congestive heart failure Acute
[2016-08-19] MEDS: METOLAZONE 2.5 MG TAB PO SCH (11:10)
--- NOTE | 2016-08-19 16:20 | HOSPPROG ---
Hospitalist Progress Note Assessment/Plan: acute on chronic CHF, systolic and diastolic - d/t a-fib, possible ischemia with new akinetic apex: diuresing well - akinetic apex - needs ischemic eval per cards - cont lasix 40 iv bid - high risk medicine - holding dig and coreg - will d/w cards restarting coreg today - hold lisinopril - restart soon # sister with hyperAldo - check renin/tata # DM2 - hypoglycemic overnight - glargine 90->70 today # NIA - resolving; need to get labs today # chronic gout - allopurinol # htn - hold lisino, cont norvasc # leukocytosis - d/t stress, doubt infection Subjective: case d/w dr nguyen Objective: Vital Signs Temp Pulse Resp BP Pulse Ox 36.3 C 90 20 142/87 H 90 L 08/19/16 15:38 08/19/16 15:38 08/19/16 15:38 08/19/16 15:38 08/19/16 15:38 Laboratory Results 08/16/16 05:10 08/19/16 03:56 08/18/16 08/19/16 08/20/16 05:59 05:59 05:59 Intake Total 500 1560 Output Total 2775 2730 1125 Balance -2275 -1170 -1125 PT 14.9 SEC (12.0-15.0) 08/15/16 13:20 INR 1.17 (0.83-1.16) H 08/15/16 13:20 - Physical Exam Constitutional: no apparent distress, appears nourished Eyes: PERRL, anicteric sclera Ears, Nose, Mouth, Throat: moist mucous membranes, hearing normal Cardiovascular: regular rate and rhythym, no murmur, rub, or gallop Respiratory: no respiratory distress, no rales or rhonchi Gastrointestinal: normoactive bowel sounds, soft, non-tender abdomen Genitourinary: No davis in urethra Skin: warm, normal color Musculoskeletal: full muscle strength Neurologic: AAOx3 ICD10 Worksheet Patient Problems: Problems Problem Status Onset Atrial fibrillation Acute Congestive heart failure Acute
[2016-08-19] MEDS: ASPIRIN 81 MG CHEWABLE TAB PO SCH (22:14)
[2016-08-19] MEDS: ATORVASTATIN CALCIUM 20 MG TAB PO SCH (22:14)
[2016-08-19] MEDS: INSULIN GLARGINE 100 UNITS/ML SYRINGE SC SCH (22:23)
--- NOTE | 2016-08-20 09:01 | PDCARPN ---
Cardiology Progress Note Chief Complaint: Pedal edema Dyspnea Assessment/Plan: Assessment: 1. Acute on chronic CHF 2. Nonischemic CMP based on cath per patient history >10 y ago 3. HTN 4. HLD 5. DM Plan: 1. Continue diuresis, monitor renal fn. 2. Continue lovenox for AFIB, if no plan on cor angio this admission, switch to OAC - Pradaxa/Eliquis 3. Continue BB, digoxin for rate control 08/20/16 09:03 Subjective: Symptoms improving Time Spent With Patient: 20 min Objective: Vital Signs (8 Hrs) Temp Pulse Resp BP Pulse Ox 08/20/16 07:17 36.9 C 92 20 148/75 H 90 L 08/20/16 04:00 37.4 C 98 19 127/72 H 91 L Intake/Output (24 Hrs) 08/18/16 08/19/16 08/20/16 11:59 11:59 11:59 Intake Total 860 1200 550 Output Total 2575 3280 3675 Balance -1712 -2080 -3129 Intake: Oral (ml) 860 1200 550 Output: Urine (ml) 2575 3280 3675 Urinal 2575 3280 3675 Other: Weight 136.9 kg 136.3 kg 133.6 kg Intake Quantity Yes Sufficient Number of Voids Urinal 2 4 Number of Stools Urinal 1 1 Result Diagrams: 08/16/16 05:10 08/19/16 03:56 Telemetry: AF with CVR Echocardiogram: LVEF 40, apical hypokinesis ICD10 Worksheet Patient Problems: Problems Problem Status Onset Congestive heart failure Acute Atrial fibrillation Acute
[2016-08-20] MEDS: MULTIVITAMINS 1 EACH TAB PO SCH (09:21)
[2016-08-20] MEDS: CHOLECALCIFEROL VIT D3 1,000 UNITS TAB PO SCH (09:21)
[2016-08-20] MEDS: OMEGA-3 FATTY ACIDS 1,000 MG CAP PO SCH (09:21)
[2016-08-20] MEDS: METOLAZONE 2.5 MG TAB PO SCH (09:21)
[2016-08-20] MEDS: ENOXAPARIN 150 MG/ML SYR SC SCH ×2 (09:21→19:57)
[2016-08-20] MEDS: INSULIN REGULAR HUMAN 100 UNIT/ML SC SCH ×4 (09:22→23:51)
[2016-08-20] MEDS: ALLOPURINOL 300 MG TAB PO SCH (09:22)
[2016-08-20] MEDS: ACETAMINOPHEN 325 MG TAB PO PRN ×2 (09:26→18:10)
[2016-08-20] MEDS: FUROSEMIDE 40 MG/4 ML VIAL IVP SCH ×2 (10:38→18:02)
[2016-08-20 10:43] LABS: ANION GAP 9 mEq/L (8-16); CALCIUM 8.5 mg/dL (8.5-10.4); CARBON DIOXIDE 28 mEq/l (22-31); CHLORIDE 101 mEq/L (97-110); CREATININE 0.8 mg/dL (0.7-1.3); GLOMERULAR FILTRATION RATE > 60; GLUCOSE 192 mg/dL (70-100); POTASSIUM 3.5 mEq/L (3.5-5.2); SODIUM 138 mEq/L (134-144)
[2016-08-20 11:29] LABS: % IMMATURE GRANULYOCYTES 0.4 % (0.0-1.1); ABSOLUTE IMMATURE GRANULOCYTES 0.05 10^3/uL (0.00-0.10); ADD DIFF? NO; ADD MORPH? NO; ADD SCAN? NO; ATYPICAL LYMPHOCYTE FLAG 0 (0-99); FRAGMENT RBC FLAG 0 (0-99); HEMATOCRIT 41.5 % (40.0-51.0); HEMOGLOBIN 13.1 g/dL (13.7-17.5); LEFT SHIFT FLG 0 (0-99); LIPEMIA HEMOLYSIS FLAG 80 (0-99); MEAN CELL HEMOGLOBIN 28.5 pg (27.9-34.1); MEAN CELL HEMOGLOBIN CONCENTR. 31.6 g/dL (32.4-36.7); MEAN CELL VOLUME 90.4 fL (81.5-99.8); MEAN PLATELET VOLUME 11.1 fL (8.7-11.7); PLATELET CLUMPS FLAG 0 (0-99); PLATELET COUNT 150 10^3/uL (150-400); RED BLOOD CELL COUNT 4.59 10^6/uL (4.40-6.38); RED CELL DISTRIBUTION WIDTH 15.5 % (11.5-15.2)
[2016-08-20 11:43] LABS: ALDOSTERONE SERUM 5.1 ng/dL (<=21)
--- NOTE | 2016-08-20 18:31 | HOSPPROG ---
Hospitalist Progress Note Assessment/Plan: 56 yo M with hx of CM, HTN, DM presenting with 40-50 pound weight gain in setting of acute exacerbation of chf. acute on chronic CHF, systolic and diastolic with EF of 40% - d/t a-fib, possible ischemia with new akinetic apex: diuresing well, net negative > 3L overnight - akinetic apex - needs ischemic eval per cards and likely for cath versus stress test on Monday - cont lasix 40 iv bid - high risk medicine - hold lisinopril - restart soon # afib: rate largely controlled but does go up with exertion, continued on bb/ dig and tx dose lovenox for now # DM2 -has had episodes of intermittent hypoglycemia overnight - glargine 90-> 70 and improved in the last 24 hours, he notes he was having lows at home as well # NIA - resolving; continue to monitor while on diuresis # chronic gout - allopurinol # htn - hold lisino, cont norvasc, sister with hyperAldo - check renin/tata # leukocytosis - d/t stress, doubt infection # joshua: on cpap # HLD: continue statin # obesity: dietary consult # IP Patient new to my care. Old records reviewed and summarized as above. Further hx obtained from daughter present at bedside. Subjective: no significant overnight events, patient notes breathing is a bit better, he is urinating a lot Objective: Vital Signs Temp Pulse Resp BP Pulse Ox 36.9 C 104 H 17 138/97 H 90 L 08/20/16 16:46 08/20/16 16:46 08/20/16 16:46 08/20/16 16:46 08/20/16 16:46 Laboratory Results 08/20/16 10:00 08/20/16 06:00 08/19/16 08/20/16 08/21/16 05:59 05:59 05:59 Intake Total 1560 550 Output Total 2730 4225 2425 Balance -1170 -3675 -2425 PT 14.9 SEC (12.0-15.0) 08/15/16 13:20 INR 1.17 (0.83-1.16) H 08/15/16 13:20 awake alert nad anicteric jvd elevated rrr systolic murmur cta with dec bs at bases soft obese nt 2-3+ pitting edema ble warm dry well perfused oriented appropriate - Time Spent With Patient Time Spent with Patient: greater than 35 minutes Time Spent with Patient: Greater than 35 minutes spent on this patients care, greater than 50% of time spent counseling, educating, and coordinating care regarding the above mentioned plan. ICD10 Worksheet Patient Problems: Problems Problem Status Onset Congestive heart failure Acute Atrial fibrillation Acute
[2016-08-20] MEDS: HYDROCODONE/APAP 5/325 TAB PO PRN (19:55)
[2016-08-20] MEDS: ATORVASTATIN CALCIUM 20 MG TAB PO SCH (19:57)
[2016-08-20] MEDS: ASPIRIN 81 MG CHEWABLE TAB PO SCH (19:57)
[2016-08-20] MEDS: INSULIN GLARGINE 100 UNITS/ML SYRINGE SC SCH (23:52)
[2016-08-21] MEDS: INSULIN REGULAR HUMAN 100 UNIT/ML SC SCH ×4 (07:41→21:52)
[2016-08-21] MEDS: ENOXAPARIN 150 MG/ML SYR SC SCH ×2 (09:43→21:51)
[2016-08-21] MEDS: OMEGA-3 FATTY ACIDS 1,000 MG CAP PO SCH (09:43)
[2016-08-21] MEDS: FUROSEMIDE 40 MG/4 ML VIAL IVP SCH ×2 (09:43→16:36)
[2016-08-21] MEDS: CHOLECALCIFEROL VIT D3 1,000 UNITS TAB PO SCH (09:44)
[2016-08-21] MEDS: MULTIVITAMINS 1 EACH TAB PO SCH (09:44)
[2016-08-21] MEDS: ALLOPURINOL 300 MG TAB PO SCH (09:44)
[2016-08-21] MEDS: HYDROCODONE/APAP 5/325 TAB PO PRN (09:44)
[2016-08-21] MEDS: METOLAZONE 2.5 MG TAB PO SCH (09:45)
[2016-08-21 10:00] LABS: ANION GAP 10 mEq/L (8-16); CALCIUM 8.2 mg/dL (8.5-10.4); CARBON DIOXIDE 29 mEq/l (22-31); CHLORIDE 96 mEq/L (97-110); CREATININE 0.8 mg/dL (0.7-1.3); GLOMERULAR FILTRATION RATE > 60; GLUCOSE 282 mg/dL (70-100); POTASSIUM 3.4 mEq/L (3.5-5.2); SODIUM 135 mEq/L (134-144)
--- NOTE | 2016-08-21 10:26 | PDCARPN ---
Cardiology Progress Note Chief Complaint: Doing well today. Right elbow pains noted Assessment/Plan: Assessment: 08-21-16 Ongoing diuresis with both metolazone and lasix therapy. Weight are down to 131 kg from 139 kg. No chest pains or pressure. Breathing has been better for the patient as well. Ambulation continues. He is able to lie on his back without PND at present. Renal function is within normal limits. Hypokalemia noted today. 08-19-16 Diuresis continues with another kilogram off. The patient "slept wrong" last night, and is having neck muscle pains today. No chest pains or pressure. Voiding continues, per patient, rather aggressively for about 2-3 hours post IV lasix dose. Heart rates continue at about 80-85 bpm. Renal function ( creatinine) is normal. Blood pressures continue to be within normal limits. 08-18-16 No events overnight. Diuresis continues with weights down another 0.8 kg today. Patient statins that he has been voiding about once per hour. Heart rates are within the normal range. Renal function is normal at present. Electrolytes are normal. Blood pressures are normal. 08-17-16 Patient doing well today. Weight loss overnight of about 1.2 kg. Patient was working with PT this morning. Ambulation in the sewell has been well tolerated. No complaints of chest pains or pressure. Heart rates on telemetry have improved (from low 50's to 70's today). Ongoing hold on the Coreg and digoxin. Further improvement in renal function has been noted (Cr to 1.2 today). 08-16-16 Patient is a 56 y/o male with history of CMP (non ischaemic by angiography " many years ago", typically followed by [facility]) with ejection fraction of 40% by echocardiogram in the past, HTN, HLP, GENESIS with CPAP use, ARF (acute), DM ( ongoing work with endocrinology for better management; neuropathy has been noted without podiatry follow up), and obesity, who presented to [facility] with complaints of weight gain (about 50 pounds) over 6 weeks to 3 months ( variability given patient's report, and 's report), shortness of breath, PND , orthopnea, and weakness. Work up in the ER with newly noted atrial fibrillation (and slow ventricular response). No chest pains or pressure have been noted. Compliance with medical therapy has been good. Being that the patient is a [facility] patient we do not have the most recent outpatient notes, but the patient is able to give a good history. Last night, the patient was given Lasix IV at 40 mg with little to no change in weights (or urine output) overnight. One dose of Lovenox (150 mg) was given the ER with the newly noted atrial fibrillation ([id number] score of 3 for CHF , HTN, and DM). Plan: (1) IV lasix and PO metolazone should continue - potassium supplementation (2) Would continue aggressive DM therapy (3) Continue Norvasc (4) Would resume therapy on Coreg at 25 mg twice per day (not at 50 mg twice per day) (5) Likely addition of Spironolactone 25 mg with cessation of metolazone (6) Statins to continue (7) Would refrain from Digoxin use, if possible - will see how heart rates tolerated the resumption of Coreg for assistance with rate control (8) ASA should continue (9) Lovenox to continue for CVA prophylaxis (10) Would arrange for Isi MPI tomorrow Subjective: Doing well, and feeling better. Continued diuresis Reviewed/Discussed With: family, hospitalist, multidisciplinary team Objective: Vital Signs (8 Hrs) Temp Pulse Resp BP Pulse Ox 08/21/16 07:35 37.3 C 120 H 12 135/93 H 99 08/21/16 03:46 36.9 C 98 18 118/79 90 L Intake/Output (24 Hrs) 08/20/16 08/21/16 08/22/16 05:59 05:59 05:59 Intake Total 550 1390 Output Total 4225 5025 Balance -3674 -3635 Intake: Oral (ml) 550 1390 Output: Urine (ml) 4225 5025 Urinal 4225 5025 Other: Weight 133.6 kg 131.4 kg Number of Voids Urinal 4 Number of Stools Urinal 1 Result Diagrams: 08/20/16 10:00 08/21/16 09:30 Telemetry: Atrial fibrillation - Physical Exam Constitutional: WDWN, no apparent distress, obese Eyes: PERRL, EOMI Ears, Nose, Mouth, Throat: moist mucous membranes Cardiovascular: systolic murmur, irregularly irregular, jugular vein distention , pulses symmetric bilat Peripheral Pulses: 2+: dorsalis-pedis (R), dorsalis-pedis (L) Respiratory: no wheezes, reduced air movement, No expiratory wheeze Gastrointestinal: normoactive bowel sounds Skin: no rashes, other (edema continues) Musculoskeletal: no muscular tenderness Neurologic: AAOx3, CN II-XII grossly intact Psychiatric: cooperative, interactive, following commands ICD10 Worksheet Patient Problems: Problems Problem Status Onset Atrial fibrillation Acute Congestive heart failure Acute
--- NOTE | 2016-08-21 13:34 | HOSPPROG ---
Hospitalist Progress Note Assessment/Plan: 56 yo M with hx of CM, HTN, DM presenting with 40-50 pound weight gain in setting of acute exacerbation of chf. # acute on chronic CHF, systolic and diastolic with EF of 40% - d/t a-fib, possible ischemia with new akinetic apex--with plans for stress test in am: diuresing well, net negative > 3L yesterday and down total 10kg since admission but likely still 15-20 kg over dry weight. - akinetic apex - needs ischemic eval per cards and likely for cath versus stress test on Monday - cont lasix 40 iv bid as well as metolazone 2.5 - high risk medicine - holding lisinopril given nia on admission - restart soon if bp is trending up, has been normotensive so far without it # afib: rate largely controlled but does go up with exertion, continued on bb/ dig and tx dose lovenox for now # DM2 -has had episodes of intermittent hypoglycemia since admission - glargine 90->70 and now morning glucose today slightly high. Sounds as if he has had fairly labile sugars as an op as well # NIA - resolved; continue to monitor while on diuresis # chronic gout - allopurinol # htn - hold lisino, cont norvasc, sister with hyperAldo - check renin (pending) /tata # leukocytosis - per patient he has had chronically minimally elevated wbc counts x 20 years, had prior onc w/u that was unrevealing. Stably elevated here as well. # joshua: on cpap # HLD: continue statin # obesity: dietary consult # IP Further hx obtained from present at bedside. Subjective: no significant overnight events, continues to have large volume urinary output, notes breathing easier, legs still swollen Objective: Vital Signs Temp Pulse Resp BP Pulse Ox 37.0 C 113 H 20 119/86 H 91 L 08/21/16 12:10 08/21/16 12:10 08/21/16 12:10 08/21/16 12:10 08/21/16 12:10 Laboratory Results 08/20/16 10:00 08/21/16 09:30 08/20/16 08/21/16 08/22/16 05:59 05:59 05:59 Intake Total 550 1390 Output Total 4225 5025 1000 Balance -3675 -3635 -1000 PT 14.9 SEC (12.0-15.0) 08/15/16 13:20 INR 1.17 (0.83-1.16) H 08/15/16 13:20 awake alert nad anicteric jvd elevated rrr systolic murmur cta with dec bs at bases soft obese nt 2-3+ pitting edema ble warm dry well perfused oriented appropriate ICD10 Worksheet Patient Problems: Problems Problem Status Onset Atrial fibrillation Acute Congestive heart failure Acute
[2016-08-21] MEDS ORDERED: PROTOCOL CALCIUM 1 DOSE IV PRN (13:37)
[2016-08-21] MEDS ORDERED: PROTOCOL MAGNESIUM 1 DOSE IV PRN (13:37)
[2016-08-21] MEDS ORDERED: PROTOCOL POTASSIUM 1 DOSE MISC PRN (13:37)
[2016-08-21] MEDS ORDERED: PROTOCOL K PHOSPHATE 1 DOSE IV PRN (13:37)
[2016-08-21] MEDS ORDERED: POTASSIUM CL 10 MEQ TAB PO ONE ×2 (16:28→21:32)
[2016-08-21 17:47] LABS: IONIZED CALCIUM 1.09 MMOL/L (1.12-1.30)
[2016-08-21] MEDS: CARVEDILOL 25 MG TAB PO SCH (17:52)
[2016-08-21 18:08] LABS: MAGNESIUM 1.9 mg/dL (1.6-2.3); POTASSIUM 3.5 mEq/L (3.5-5.2)
[2016-08-21] MEDS: ASPIRIN 81 MG CHEWABLE TAB PO SCH (21:49)
[2016-08-21] MEDS: ATORVASTATIN CALCIUM 20 MG TAB PO SCH (21:49)
[2016-08-21] MEDS: ACETAMINOPHEN 325 MG TAB PO PRN (21:50)
[2016-08-21] MEDS: INSULIN GLARGINE 100 UNITS/ML SYRINGE SC SCH (21:52)
[2016-08-22 06:06] LABS: % IMMATURE GRANULYOCYTES 0.3 % (0.0-1.1); ABSOLUTE IMMATURE GRANULOCYTES 0.04 10^3/uL (0.00-0.10); ADD DIFF? NO; ADD MORPH? NO; ADD SCAN? NO; ATYPICAL LYMPHOCYTE FLAG 0 (0-99); FRAGMENT RBC FLAG 0 (0-99); HEMATOCRIT 40.9 % (40.0-51.0); HEMOGLOBIN 12.7 g/dL (13.7-17.5); LEFT SHIFT FLG 0 (0-99); LIPEMIA HEMOLYSIS FLAG 80 (0-99); MEAN CELL HEMOGLOBIN 27.6 pg (27.9-34.1); MEAN CELL HEMOGLOBIN CONCENTR. 31.1 g/dL (32.4-36.7); MEAN CELL VOLUME 88.9 fL (81.5-99.8); MEAN PLATELET VOLUME 11.4 fL (8.7-11.7); PLATELET CLUMPS FLAG 0 (0-99); PLATELET COUNT 187 10^3/uL (150-400); RED CELL DISTRIBUTION WIDTH 15.3 % (11.5-15.2)
[2016-08-22 06:07] LABS: IONIZED CALCIUM 1.07 MMOL/L (1.12-1.30)
[2016-08-22 06:41] LABS: ANION GAP 11 mEq/L (8-16); CALCIUM 8.6 mg/dL (8.5-10.4); CARBON DIOXIDE 31 mEq/l (22-31); CHLORIDE 97 mEq/L (97-110); CREATININE 0.9 mg/dL (0.7-1.3); GLOMERULAR FILTRATION RATE > 60; POTASSIUM 3.3 mEq/L (3.5-5.2); SODIUM 139 mEq/L (134-144)
[2016-08-22 06:51] LABS: GLUCOSE 33 mg/dL (70-100)
[2016-08-22] MEDS: INSULIN REGULAR HUMAN 100 UNIT/ML SC SCH ×4 (07:12→21:38)
[2016-08-22] MEDS: ALLOPURINOL 300 MG TAB PO SCH (08:37)
[2016-08-22] MEDS: ENOXAPARIN 150 MG/ML SYR SC SCH ×2 (08:38→21:38)
[2016-08-22] MEDS: METOLAZONE 2.5 MG TAB PO SCH (08:38)
[2016-08-22] MEDS: OMEGA-3 FATTY ACIDS 1,000 MG CAP PO SCH (08:38)
[2016-08-22] MEDS: MULTIVITAMINS 1 EACH TAB PO SCH (08:38)
[2016-08-22] MEDS: CHOLECALCIFEROL VIT D3 1,000 UNITS TAB PO SCH (08:38)
[2016-08-22] MEDS: CARVEDILOL 25 MG TAB PO SCH ×3 (08:39→21:33)
[2016-08-22] MEDS: FUROSEMIDE 40 MG/4 ML VIAL IVP SCH (10:00)
[2016-08-22] MEDS ORDERED: REGADENOSON 0.4 MG/5 ML SYR IVP ONE (10:04)
[2016-08-22] MEDS ORDERED: POTASSIUM CL 10 MEQ TAB PO ONE ×2 (10:54→21:20)
[2016-08-22] MEDS ORDERED: ALTEPLASE 2 MG VIAL IVP PRN (11:02)
[2016-08-22] MEDS ORDERED: FUROSEMIDE 40 MG/4 ML VIAL IVP ONE (11:06)
--- NOTE | 2016-08-22 12:48 | PDCARPN ---
Cardiology Progress Note Chief Complaint: Patient reports extremely short of breath when lying flat. Assessment/Plan: Assessment: 1st time I have seen this patient. 56-year-old male with significant history of cardiomyopathy (ejection fraction 40% outpatient), diabetes, hypertension, gout hyperlipidemia, GENESIS,. Admitted 08/15/2016 for shortness of breath and weight gain. Found to be in persistent atrial fibrillation with bradycardia. Negative troponins x3 on admission. Echocardiogram done on 08/16/2016 shows LV systolic function mildly reduced at 40% with apical hypokinesis. Mild concentric LVH, diastolic dysfunction, grossly normal RV size and function, mild LA dilation borderline RA dilation, no MR, poorly visualized pulmonic valve. Since hospitalization, carvedilol dosage has been decreased down to 25 mg p. o. twice daily, digoxin dose held with heart rate increase 2 within normal limits. Has been undergoing IV diuresis with Lasix bolus and metolazone. Today, patient undergoing resting images for MPI study, developed hypoxia and shortness of breath, with SpO2 down to 75%, and atrial fibrillation rate with heart rate up to 130 BPM. Improvement in symptoms when sat upright, found that he had not had his a.m. dosage of carvedilol or Lasix prior to testing. 80 mg of Lasix IV given. Preliminary of stat echo showed no significant change in LV systolic function. Stat EKG showed AFib with RVR, Q-waves noted in inferior leads, and in V1 through V 4 (besides rate, unchanged from hospital admission EKG). Stat chest x-ray showed slightly increased CHF, improved right basilar consolidation. Patient reporting no chest pain throughout event. At this time , vital signs are stable, SpO2 back to within normal limits. Patient reports SOB significantly improved sitting upright. Patient is down 12 kilos since hospital admission. Noted this a.m. to be hypoglycemic with blood sugar of 33, which has been corrected. Plan: 1. Acute on chronic systolic and diastolic heart failure: Limited echo done today, preliminary results showing no change in EF, 40%. Question ischemia, atrial fibrillation, diastolic dysfunction or a combination. Patient given 80 mg IV Lasix this a.m., and metolazone. Continues to be significantly fluid overloaded on physical examination, will start Lasix drip. Order for PICC line placement today. 2. Apical wall akinesis: Echocardiogram done on admission showing apical wall akinesis, MPI study plan for today, but only resting pictures were able to be done due to significant hypoxia and shortness of breath. Continue with diuresis. Repeat troponin level today pending. Re-evaluate in a.m., pending results, may be able to do stress MPI imaging, or consideration right and left cardiac catheterization. Will discuss further with Dr. Bauer. 3. Cardiomyopathy: Patient restarted on carvedilol at 25 mg p.o. twice daily. Continue to diurese as mentioned above. Noted to have NIA on admission, which has resolved. Will hold off ROMAINE-inhibitor at this time, until closer to dry weight with diuretic therapy. 4. Hypertension: BP appears well controlled on Coreg, Norvasc, and diuretic therapy. 5. GENESIS: Continue on CPAP therapy. 6. Hyperlipidemia: Continue on statin therapy. 7. Diabetes: Med adjustments per hospitalist services 8. Hypokalemia: Electrolyte replacement protocol in place. Continue to monitor 9. NIA: Continue to monitor while on diuretic therapy. 08/22/16 12:46 Subjective: Patient denies of any chest pressure or pain, lightheadedness, or palpitations Reviewed/Discussed With: hospitalist (Dr Pitt), other (Dr Bauer and Dr Gutierrez) Objective: Vital Signs (8 Hrs) Temp Pulse Resp BP Pulse Ox 08/22/16 11:41 36.6 C 102 H 20 141/85 H 98 08/22/16 08:00 36.5 C 105 H 20 108/79 88 L Intake/Output (24 Hrs) 08/21/16 08/22/16 08/23/16 05:59 05:59 05:59 Intake Total 1390 1030 Output Total 5025 3675 650 Balance -2755 -0845 -650 Intake: Oral (ml) 1390 1030 Output: Urine (ml) 5025 3675 650 Urinal 5025 3675 650 Other: Weight 129.7 kg Intake Quantity Yes Sufficient Number of Voids Urinal 1 Result Diagrams: 08/22/16 04:33 08/22/16 04:33 - Physical Exam Constitutional: obese, other ( sitting upright in bed.) Ears, Nose, Mouth, Throat: moist mucous membranes Cardiovascular: systolic murmur (2/6 Left sternal border), irregularly irregular, jugular vein distention (6 cm above sternal notch) Peripheral Pulses: 1+: dorsalis-pedis (R), dorsalis-pedis (L), 2+: carotid (R), carotid (L) Respiratory: other ( diminished, with rales noted in bases bilateral. No rhonchi or wheezing noted) Gastrointestinal: normoactive bowel sounds, other ( firm to palpitation) Skin: warm, No no edema ( +3 peripheral edema bilateral lower extremities to thighs.) Neurologic: AAOx3 Psychiatric: cooperative, following commands ICD10 Worksheet Patient Problems: Problems Problem Status Onset Congestive heart failure Acute Atrial fibrillation Acute
[2016-08-22] MEDS ORDERED: CALCIUM GLUCONATE 50 ML IV ONE (13:22)
[2016-08-22] MEDS ORDERED: INSULIN GLARGINE 100 UNITS/ML SYRINGE SC SCH (14:35)
[2016-08-22 15:35] LABS: POTASSIUM 3.9 mEq/L (3.5-5.2)
--- NOTE | 2016-08-22 16:31 | HOSPPROG ---
Hospitalist Progress Note Assessment/Plan: 56 yo M with hx of CM, HTN, DM presenting with 40-50 pound weight gain in setting of acute exacerbation of chf. # acute on chronic CHF, systolic and diastolic with EF of 40% - d/t a-fib, possible ischemia with new akinetic apex--attempted stress test however became significantly hypoxic during stress when lying flat: diuresing well, down 12kg since admission but likely still 15-20 kg over dry weight. Starting on lasix gtt. - holding lisinopril given nia on admission - restart soon if bp is trending up, has been normotensive so far without it # afib: rate largely controlled but does go up with exertion, continued on bb/ dig and tx dose lovenox for now # DM2 -with continued episodes of hypoglycemia since admission including down to 33 this am. Patient also having lows at home to the extent that he no longer has any sxs with lows. Already decreased glargine but will decrease further from 90 to 30 and monitor--would tolerate higher glucoses in favor of avoiding ongoing lows. continue ssi. # NIA - resolved; continue to monitor while on diuresis # chronic gout - allopurinol # htn - hold lisino, cont norvasc, sister with hyperAldo - check renin (pending) /tata # leukocytosis - per patient he has had chronically minimally elevated wbc counts x 20 years, had prior onc w/u that was unrevealing. Stably elevated here as well. # joshua: on cpap # HLD: continue statin # obesity: dietary consult # IP Further hx obtained from present at bedside. Care plan reviewed with cardiology. Subjective: no significant overnight events, patient had a low glucose this am of 33 but notes he really had no sxs with that other than being a bit sweaty Objective: Vital Signs Temp Pulse Resp BP Pulse Ox 36.6 C 102 H 20 141/85 H 98 08/22/16 11:41 08/22/16 11:41 08/22/16 11:41 08/22/16 11:41 08/22/16 11:41 Laboratory Results 08/22/16 04:33 08/22/16 14:30 08/21/16 08/22/16 08/23/16 05:59 05:59 05:59 Intake Total 1390 1030 Output Total 2457 1365 1900 Balance -5055 -4515 -9150 PT 14.9 SEC (12.0-15.0) 08/15/16 13:20 INR 1.17 (0.83-1.16) H 08/15/16 13:20 awake alert nad anicteric jvd elevated rrr systolic murmur cta with dec bs at bases soft obese nt 2-3+ pitting edema ble warm dry well perfused oriented appropriate - Time Spent With Patient Time Spent with Patient: greater than 35 minutes Time Spent with Patient: Greater than 35 minutes spent on this patients care, greater than 50% of time spent counseling, educating, and coordinating care regarding the above mentioned plan. ICD10 Worksheet Patient Problems: Problems Problem Status Onset Atrial fibrillation Acute Congestive heart failure Acute
--- NOTE | 2016-08-22 16:39 | CPEKG ---
Heart Rate: 129 RR Interval: 465 QRSD Interval: 94 QT Interval: 328 QTC Interval: 481 QRS Ludlow: -58 T Wave [place]: 98 EKG Severity - ABNORMAL ECG - EKG Impression: ATRIAL FIBRILLATION, V-RATE 63-172 EKG Impression: INFERIOR INFARCT, OLD EKG Impression: LATERAL INFARCT, AGE INDETERMINATE EKG Impression: ANTERIOR INFARCT, OLD EKG Impression: BORDERLINE PROLONGED QT INTERVAL Electronically Signed By: Narciso Reese 24-Aug-2016 16:53:30
--- NOTE | 2016-08-22 17:52 | ECHO ---
[id number] + + [address] : : [place] [address] : : [phone] + + Adult Echocardiographic Report + -----+ :Name: DEE BUTTERFIELD LStudy Date: 08/22/2016 11:05 AM : : Hospital Admission Number: [id number] Location : 223: :: 1960 Gender: Male : :Age: 56 yrs Race: WH : :Reason For Study: Decreased O2 levels : + -----+ Conclusion Limited 2-D echo. Technically difficult study with patient sitting upright. Cannot exclude new wall motion abnormalities. This is a very limited study Overall LVEF is about 40%. Possible inferior and septal hypokinesis but endocardium is incompletely visualized Consider Definity study Final Reading Physician: Dr Maryana Gutierrez electronically signed on 08/22/2016 05:51 PM Ordering Physician: Bishnu Benito Performed By: Madai Oconnor, CS
[2016-08-22 18:42] LABS: POTASSIUM 3.8 mEq/L (3.5-5.2)
[2016-08-22] MEDS: FUROSEMIDE 100 MG in D5W 100 ML IV SCH (21:33)
[2016-08-22] MEDS: ATORVASTATIN CALCIUM 20 MG TAB PO SCH (21:37)
[2016-08-22] MEDS: ASPIRIN 81 MG CHEWABLE TAB PO SCH (21:37)
[2016-08-23] MEDS: FUROSEMIDE 100 MG in D5W 100 ML IV SCH ×2 (04:20→10:17)
[2016-08-23 04:37] LABS: IONIZED CALCIUM 1.11 MMOL/L (1.12-1.30)
[2016-08-23 05:01] LABS: ANION GAP 10 mEq/L (8-16); CALCIUM 9.2 mg/dL (8.5-10.4); CARBON DIOXIDE 38 mEq/l (22-31); CHLORIDE 89 mEq/L (97-110); GLOMERULAR FILTRATION RATE > 60; GLUCOSE 57 mg/dL (70-100); MAGNESIUM 1.7 mg/dL (1.6-2.3); POTASSIUM 3.5 mEq/L (3.5-5.2); SODIUM 137 mEq/L (134-144)
[2016-08-23] MEDS ORDERED: POTASSIUM CL 10 MEQ TAB PO ONE ×2 (07:54→20:04)
[2016-08-23] MEDS ORDERED: MAGNESIUM SULF 1 GM/DEXTROSE 100 ML IV ONE (07:55)
[2016-08-23] MEDS: INSULIN REGULAR HUMAN 100 UNIT/ML SC SCH ×2 (08:40→12:35)
[2016-08-23] MEDS: METOLAZONE 2.5 MG TAB PO SCH (08:51)
[2016-08-23] MEDS: OMEGA-3 FATTY ACIDS 1,000 MG CAP PO SCH (08:51)
[2016-08-23] MEDS: ENOXAPARIN 150 MG/ML SYR SC SCH ×2 (08:51→20:38)
[2016-08-23] MEDS: ALLOPURINOL 300 MG TAB PO SCH (08:51)
[2016-08-23] MEDS: CHOLECALCIFEROL VIT D3 1,000 UNITS TAB PO SCH (08:51)
[2016-08-23] MEDS: MULTIVITAMINS 1 EACH TAB PO SCH (08:52)
[2016-08-23] MEDS: CARVEDILOL 25 MG TAB PO SCH ×2 (08:52→17:51)
[2016-08-23] MEDS ORDERED: CALCIUM GLUCONATE 50 ML IV ONE (09:27)
[2016-08-23] MEDS ORDERED: INSULIN GLARGINE 100 UNITS/ML SYRINGE SC SCH (10:50)
--- NOTE | 2016-08-23 11:00 | PDCARPN ---
Cardiology Progress Note Chief Complaint: Extreme SOB on admit. Assessment/Plan: Assessment: Assessment/Plan: First time seeing patient....Resuming care: August Assessment: 1st time I have seen this patient. 56-year-old male with significant history of cardiomyopathy (ejection fraction 40% outpatient), diabetes, hypertension, gout hyperlipidemia, GENESIS,. Admitted 08/15/2016 for shortness of breath and weight gain. Found to be in persistent atrial fibrillation with bradycardia. Negative troponins x3 on admission. Echocardiogram done on 08/16/2016 shows LV systolic function mildly reduced at 40% with apical hypokinesis. Mild concentric LVH, diastolic dysfunction, grossly normal RV size and function, mild LA dilation borderline RA dilation, no MR, poorly visualized pulmonic valve. Since hospitalization, carvedilol dosage has been decreased down to 25 mg p. o. twice daily, digoxin dose held with heart rate increase 2 within normal limits. Has been undergoing IV diuresis with Lasix bolus and metolazone. Today, patient undergoing resting images for MPI study, developed hypoxia and shortness of breath, with SpO2 down to 75%, and atrial fibrillation rate with heart rate up to 130 BPM. Improvement in symptoms when sat upright, found that he had not had his a.m. dosage of carvedilol or Lasix prior to testing. 80 mg of Lasix IV given. Preliminary of stat echo showed no significant change in LV systolic function. Stat EKG showed AFib with RVR, Q-waves noted in inferior leads, and in V1 through V 4 (besides rate, unchanged from hospital admission EKG). Stat chest x-ray showed slightly increased CHF, improved right basilar consolidation. Patient reporting no chest pain throughout event. At this time , vital signs are stable, SpO2 back to within normal limits. Patient reports SOB significantly improved sitting upright. Patient is down 12 kilos since hospital admission. Noted this a.m. to be hypoglycemic with blood sugar of 33, which has been corrected. Plan: 1. Acute on chronic systolic and diastolic heart failure: Limited echo done today, preliminary results showing no change in EF, 40%. Question ischemia, atrial fibrillation, diastolic dysfunction or a combination. Patient given 80 mg IV Lasix this a.m., and metolazone. Continues to be significantly fluid overloaded on physical examination, will start Lasix drip. Order for PICC line placement today. 2. Apical wall akinesis: Echocardiogram done on admission showing apical wall akinesis, MPI study plan for today, but only resting pictures were able to be done due to significant hypoxia and shortness of breath. Continue with diuresis. Repeat troponin level today pending. Re-evaluate in a.m., pending results, may be able to do stress MPI imaging, or consideration right and left cardiac catheterization. Will discuss further with Dr. Bauer. 3. Cardiomyopathy: Patient restarted on carvedilol at 25 mg p.o. twice daily. Continue to diurese as mentioned above. Noted to have NIA on admission, which has resolved. Will hold off ROMAINE-inhibitor at this time, until closer to dry weight with diuretic therapy. 4. Hypertension: BP appears well controlled on Coreg, Norvasc, and diuretic therapy. 5. GENESIS: Continue on CPAP therapy. 6. Hyperlipidemia: Continue on statin therapy. 7. Diabetes: Med adjustments per hospitalist services 8. Hypokalemia: Electrolyte replacement protocol in place. Continue to monitor 9. NIA: Continue to monitor while on diuretic therapy. August My first visit with Mr Fortune today: Admitted 08/15/16 in A Fib, extreme SOB especially laying flat, Significant weight increase, and significant Fluid retention. Today feeling much better. He and his tell me his legs, feet and abdomen are half the size now than when he was admitted. He did have an ECHO showing EF 40%. See above narrative for admit details. Acute on Chronic Systolic and Diastolic CHF: Responding well to IV Lasix 40 mg BID. Lasix drip has been discontinued. His weight on Admit 136.3, and today weight 126.6 Kg. Metolazone stopped today. He has history of NIA. Restart if needed. Apical Wall Akinesis was identified on ECHO. Trops negative. Attempted Nuc Lexiscan yesterday and he became hypoxic laying flat. Today Lexiscan portion done with Oxygen at 15L--Respiratory Therapy was present. Test completed without incident. He will have Stress images done using his CPAP. Discussed with Dr Maryana Gutierrez. He will regardless likely need R & LHC. Nuc Results will provide Cardiac perfusion distribution information. CARDIOMYOPATHY with EF 40% On Carvedilol and tolerating well. No ROMAINE at this time due to history of NIA. Will revisit ROMAINE addition later. HTN well managed on Coreg, Norvasc, and Lasix. HYPOKALEMIA--- Electrolyte protocol in place. DM monitored and managed by Hospitalists. PLAN: Continue gentle diuresis. Consider R & LHC. 08/23/16 11:00 08/23/16 14:02 Subjective: Feeling much better today. Reviewed/Discussed With: family, hospitalist, multidisciplinary team, other (Dr Gutierrez) Objective: Vital Signs (8 Hrs) Temp Pulse Resp BP Pulse Ox 08/23/16 08:57 36.9 C 87 19 119/77 97 08/23/16 04:00 36.6 C 81 18 119/82 H 97 Intake/Output (24 Hrs) 08/22/16 08/23/16 08/24/16 05:59 05:59 05:59 Intake Total 1030 700 400 Output Total 3675 7250 850 Balance -2645 -6550 -450 Intake: Oral (ml) 1030 700 400 Output: Urine (ml) 3675 7250 850 Urinal 3675 7250 850 Other: Weight 129.7 kg 126.6 kg Intake Quantity Yes Yes Sufficient Number of Voids Urinal 1 Result Diagrams: 08/22/16 04:33 08/23/16 12:15 Cardiac Labs: Cardiac Lab Results (72 Hrs) 08/22/16 14:30 Troponin I 0.032 - Physical Exam Constitutional: no apparent distress, obese Cardiovascular: no gallops, systolic murmur, irregularly irregular Peripheral Pulses: 2+: dorsalis-pedis (R), dorsalis-pedis (L) Respiratory: reduced air movement, No no crackles, No no wheezes Gastrointestinal: ascites, No tenderness Skin: warm Neurologic: AAOx3 Psychiatric: cooperative, interactive, not anxious ICD10 Worksheet Patient Problems: Problems Problem Status Onset Atrial fibrillation Acute Congestive heart failure Acute
[2016-08-23 12:52] LABS: GLUCOSE 385 mg/dL (70-100)
[2016-08-23] MEDS ORDERED: REGADENOSON 0.4 MG/5 ML SYR IVP ONE (13:37)
--- NOTE | 2016-08-23 14:32 | CPR ---
[f rep st] NONINVASIVE CARDIAC PROCEDURE REPORT DATE OF PROCEDURE: 08/23/2016 PROCEDURE PERFORMED: Nuclear Lexiscan Stress Test. REASON FOR TEST: Ischemic changes on EKG. Resting EKG shows atrial fibrillation with ventricular rate 70-109, occasional PVC. Pre blood press ure 121/80. Pre heart rate 87. Oxygen saturation 99% on 15 L of oxygen, respiratory therapy standi ng by. PROCEDURE IN DETAIL: Lexiscan was injected rapidly, followed by saline flush. Cardiolite was then injected, followed by saline flush. He did have some rapid respirations with the Lexiscan injection . He had no dizziness or lightheadedness. Had some very mild chest discomfort. There were no EKG changes. Blood pressure peaked at 121/66. Peak heart rate with injection 90. He tolerated the inj ection well. RECOVERY: Blood pressure 114/72. Recovery heart rate 84. Oxygen saturation 98%. He remained in a trial fibrillation throughout the test. He recovered well with no additional problems. At this gabriel e, he is stable to go for nuclear imaging. /[id number]/MODL
[2016-08-23] MEDS: FUROSEMIDE 40 MG/4 ML VIAL IVP SCH (15:34)
[2016-08-23] MEDS ORDERED: D50W 25 GM/50 ML SYR IVP PRN (16:20)
--- NOTE | 2016-08-23 16:23 | HOSPPROG ---
Hospitalist Progress Note Assessment/Plan: 56 yo M with hx of CM, HTN, DM presenting with 40-50 pound weight gain in setting of acute exacerbation of chf. # acute on chronic CHF, systolic and diastolic with EF of 40% - d/t a-fib, possible ischemia with new akinetic apex--attempted stress test however became significantly hypoxic during stress when lying flat: diuresing well, down 12kg since admission but likely still 15-20 kg over dry weight. Started on lasix gtt yesterday and was negative 6L and down 3kg yesterday with new metabolic alk and increased bun so will go back to bid lasix and metolazone with goal net negative of no more than 3L daily. - holding lisinopril given nia on admission - restart soon if bp is trending up, has been normotensive so far without it -s/p stress test today with nuc pending # afib: rate largely controlled but does go up with exertion, continued on bb/ dig and tx dose lovenox for now # DM2 -with continued episodes of hypoglycemia since admission despite decreasing glargine from 90 to 30. Continues to be labile however with recent glucose in high 300s. Will go down to 15 on glargine and change to very high dose sliding scale and continue to monitor. # NIA -has had bump in bun overnight on lasix gtt as above, go back to bid dose lasix and monitor # metabolic alkalosis: 2/2 aggressive diuresis, decreasing diuresis as above and monitoring # acute hypoxic respiratory failure: not on o2 at home but requiring 4-6L here for o2 in the mid 90s, related to volume overload 2/2 chf # chronic gout - allopurinol # htn - hold lisino, cont norvasc, sister with hyperAldo - check renin (pending) /tata # leukocytosis - per patient he has had chronically minimally elevated wbc counts x 20 years, had prior onc w/u that was unrevealing. Stably elevated here as well. # joshua: on cpap # HLD: continue statin # obesity: dietary consult # IP Subjective: no significant overnight events, s/p stress test today w/o issues, no chest pain, had lots of uop overnight Objective: Vital Signs Temp Pulse Resp BP Pulse Ox 37.0 C 85 12 128/89 H 91 L 08/23/16 12:05 08/23/16 12:05 08/23/16 12:05 08/23/16 12:05 08/23/16 12:05 Laboratory Results 08/22/16 04:33 08/23/16 12:15 08/22/16 08/23/16 08/24/16 05:59 05:59 05:59 Intake Total 1030 700 400 Output Total 3675 7250 1525 Balance -9135 -6550 -1125 PT 14.9 SEC (12.0-15.0) 08/15/16 13:20 INR 1.17 (0.83-1.16) H 08/15/16 13:20 awake alert nad anicteric jvd elevated rrr systolic murmur cta with dec bs at bases soft obese nt 2-3+ pitting edema ble warm dry well perfused oriented appropriate - Time Spent With Patient Time Spent with Patient: greater than 35 minutes Time Spent with Patient: Greater than 35 minutes spent on this patients care, greater than 50% of time spent counseling, educating, and coordinating care regarding the above mentioned plan. ICD10 Worksheet Patient Problems: Problems Problem Status Onset Atrial fibrillation Acute Congestive heart failure Acute
[2016-08-23] MEDS: INSULIN LISPRO 100 UNIT/ML SC SCH (17:50)
[2016-08-23 19:09] LABS: POTASSIUM 3.7 mEq/L (3.5-5.2)
[2016-08-23] MEDS: ASPIRIN 81 MG CHEWABLE TAB PO SCH (20:38)
[2016-08-23] MEDS: ATORVASTATIN CALCIUM 20 MG TAB PO SCH (20:38)
[2016-08-24 05:53] LABS: IONIZED CALCIUM 1.11 MMOL/L (1.12-1.30)
[2016-08-24 06:27] LABS: ANION GAP 8 mEq/L (8-16); CALCIUM 9.1 mg/dL (8.5-10.4); CARBON DIOXIDE 39 mEq/l (22-31); CHLORIDE 88 mEq/L (97-110); GLOMERULAR FILTRATION RATE > 60; GLUCOSE 199 mg/dL (70-100); MAGNESIUM 1.9 mg/dL (1.6-2.3); POTASSIUM 3.9 mEq/L (3.5-5.2); SODIUM 135 mEq/L (134-144)
[2016-08-24] MEDS ORDERED: CALCIUM GLUCONATE 50 ML IV ONE (08:30)
[2016-08-24] MEDS ORDERED: POTASSIUM CL 10 MEQ TAB PO ONE (08:31)
[2016-08-24] MEDS: CARVEDILOL 25 MG TAB PO SCH ×2 (08:38→17:30)
[2016-08-24] MEDS: CHOLECALCIFEROL VIT D3 1,000 UNITS TAB PO SCH (08:38)
[2016-08-24] MEDS: OMEGA-3 FATTY ACIDS 1,000 MG CAP PO SCH (08:38)
[2016-08-24] MEDS: ALLOPURINOL 300 MG TAB PO SCH (08:38)
[2016-08-24] MEDS: FUROSEMIDE 40 MG/4 ML VIAL IVP SCH ×2 (08:38→15:51)
[2016-08-24] MEDS: MULTIVITAMINS 1 EACH TAB PO SCH (08:38)
[2016-08-24] MEDS: ENOXAPARIN 150 MG/ML SYR SC SCH (08:38)
[2016-08-24] MEDS: INSULIN LISPRO 100 UNIT/ML SC SCH ×3 (08:39→18:01)
--- NOTE | 2016-08-24 09:56 | PDCARPN ---
Cardiology Progress Note Chief Complaint: Patient reports increased shortness of breath And swelling Assessment/Plan: Assessment: 56-year-old male with significant history of cardiomyopathy (ejection fraction 40% outpatient), diabetes, hypertension, gout hyperlipidemia, GENESIS,. Admitted 08/15/2016 for shortness of breath and weight gain. Found to be in persistent atrial fibrillation with bradycardia. Negative troponins x3 on admission. Echocardiogram done on 08/16/2016 shows LV systolic function mildly reduced at 40 % with apical hypokinesis. Mild concentric LVH, diastolic dysfunction, grossly normal RV size and function, mild LA dilation borderline RA dilation, no MR, poorly visualized pulmonic valve. Since hospitalization, carvedilol dosage has been decreased down to 25 mg p. o. twice daily, digoxin dose held with heart rate increase to WNL. MPI stress test results from 08/23/2016, show stress and rest imaging showed fixed diminished attenuation along the inferior wall and distal anterior wall septal junction, extending down to apex, LV cavity was dilated at both rest stress imaging, but no significant evidence of myocardial ischemia. Patient has had chest pressure or pain hospitalization. Has been bolus and continuous IV Lasix drip with metolazone. Currently getting Lasix 40 mg IV twice daily. Today's patient CO2 is continue to climb, today 39, weight is down 4 kilos from yesterday, net output 2765. Total weight loss since hospital admission, 12.2 kilos. Reporting significant improvement in shortness of breath. Continues to have +3 peripheral edema bilateral extremities, but reports abdomen is no longer tight, making it easier for him to breath. He denies of any chest pain or shortness of breath. Continues pants closer shows continuation atrial fibrillation, rate controlled, does elevated exertion. Occasional premature ventricular contraction noted. No malignant arrhythmias or pauses noted. Plan: 1. Acute on chronic systolic and diastolic heart failure: Continued to progress for with diuresis. 12.2 kilos weight loss since hospital admission. Patient still probably another 10-15 kilos from dry weight. CO2 climbing, metolazone discontinued yesterday, but patient had already received am dosage. Will continue on current Lasix therapy of 40 mg IV twice daily. Repeat BMP in a.m., if CO2 continues climb, consideration of starting on Diamox. Continue on beta-hubert carvedilol. Discussed with Dr. Gutierrez, patient should undergo right and left heart catheterization, plan on Monday. 2. Apical wall akinesis: Echocardiogram done on admission showing apical wall akinesis, abnormal MPI study showing fixed diminished attenuation along the inferior wall and distal anterior wall septal junction, extending down to apex, no ischemia. Patient reports no history chest pressure pain. With recent heart failure, abnormal stress test, and multiple cardiac risk factors including diabetes, felt best that the patient be further evaluated. Heart catheterization as above. Continue aspirin and coreg. 3. Cardiomyopathy: Patient restarted on carvedilol at 25 mg p.o. twice daily. NIA on admission which has resolved. Consider starting on ROMAINE-inhibitor near future after intense diuresis. Consider starting on Aldactone. 4. Persistent atrial fibrillation: Rate well controlled today, continue on current dose of carvedilol. Digoxin has been on hold since admission. Patient' s [id number] score of 3. Currently being anticoagulation with Lovenox. Plan on heart catheterization next few days. Please post catheterization, will plan on starting on oral anticoagulation with either warfarin or new novel agent. Discussed with Dr. Gutierrez, plan MAURILIO cardioversion Monday. 5. Hypertension: BP appears well controlled on Coreg, Norvasc, and diuretic therapy. 6. GENESIS: Continue on CPAP therapy. 7. Hyperlipidemia: Continue on statin therapy. 8. Diabetes: Med adjustments per hospitalist services 9. Hypokalemia: Electrolyte replacement protocol in place. Continue to monitor 10. NIA: Continue to monitor while on diuretic therapy. 08/24/16 09:52 Subjective: patient denies of any chest pressure or pain. Reports no palpitations, denies of any lightheadedness, continues to have orthopnea, but improved. Reviewed/Discussed With: hospitalist (Dr Pitt), other (Dr Gutierrez) Objective: Vital Signs (8 Hrs) Temp Pulse Resp BP Pulse Ox 08/24/16 07:56 36.6 C 87 14 131/77 H 90 L 08/24/16 04:00 37 C 89 15 126/89 H 94 Intake/Output (24 Hrs) 08/23/16 08/24/16 08/25/16 05:59 05:59 05:59 Intake Total 700 1030 Output Total 7250 3795 Balance -4656 -4685 Intake: Oral (ml) 700 1030 Output: Urine (ml) 7250 3795 Urinal 7250 3795 Other: Weight 126.6 kg 122.6 kg Intake Quantity Yes Sufficient Number of Voids Urinal 1 Result Diagrams: 08/22/16 04:33 08/24/16 17:55 Cardiac Labs: Cardiac Lab Results (72 Hrs) 08/22/16 14:30 Troponin I 0.032 - Physical Exam Constitutional: no apparent distress, obese Ears, Nose, Mouth, Throat: moist mucous membranes Cardiovascular: systolic murmur ( 2/6 along left sternal border.), irregularly irregular, jugular vein distention ( 4-5 cm above sternal notch), pulses symmetric bilat, No carotid bruit Peripheral Pulses: 1+: dorsalis-pedis (R), dorsalis-pedis (L), 2+: carotid (R), carotid (L) Respiratory: other ( diminished in bases, no rhonchi, rales, or wheezing noted.) Gastrointestinal: normoactive bowel sounds, other ( Obese, round) Skin: warm, No no edema ( +3 pitting edema bilateral lower extremities to thigh. ) Neurologic: AAOx3 Psychiatric: cooperative, interactive, following commands ICD10 Worksheet Patient Problems: Problems Problem Status Onset Congestive heart failure Acute Atrial fibrillation Acute
[2016-08-24 13:30] LABS: GLUCOSE 361 mg/dL (70-100)
[2016-08-24] MEDS ORDERED: INSULIN GLARGINE 100 UNITS/ML SYRINGE SC ONE (17:00)
--- NOTE | 2016-08-24 17:13 | HOSPPROG ---
Hospitalist Progress Note Assessment/Plan: 56 yo M with hx of CM, HTN, DM presenting with 40-50 pound weight gain in setting of acute exacerbation of chf. # acute on chronic CHF, systolic and diastolic with EF of 40% - d/t a-fib, possible ischemia with new akinetic apex--attempted stress test however became significantly hypoxic during stress when lying flat: diuresing well, down 12kg since admission but likely still 15-20 kg over dry weight. Has been diuresing well since admission, but with increased metabolic alk have also dc'ed metolazone - holding lisinopril given nia on admission - restart soon if bp is trending up, has been normotensive so far without it - stress test today but will need f/u heart cath which will be done on Monday along with CV # afib: rate largely controlled but does go up with exertion, continued on bb/ dig and tx dose lovenox for now, plan for cv on Monday # DM2 -with continued episodes of hypoglycemia since admission despite decreasing glargine from 90 to 30. Continues to be labile however with recent glucose in high 300s. Will go down to 15 on glargine and change to very high dose sliding scale and continue to monitor. # NIA -has had bump in bun overnight on lasix gtt as above, go back to bid dose lasix and monitor # metabolic alkalosis: 2/2 aggressive diuresis, decreasing diuresis as above and monitoring # acute hypoxic respiratory failure: not on o2 at home but requiring 4-6L here for o2 in the mid 90s, related to volume overload 2/2 chf # chronic gout - allopurinol # htn - hold lisino, cont norvasc, sister with hyperAldo - check renin (pending) /tata # leukocytosis - per patient he has had chronically minimally elevated wbc counts x 20 years, had prior onc w/u that was unrevealing. Stably elevated here as well. # joshua: on cpap # HLD: continue statin # obesity: dietary consult # IP Subjective: no acute overnight events, patient continues to feel better and putting out a lot of urine Objective: Vital Signs Temp Pulse Resp BP Pulse Ox 36.6 C 80 18 115/79 93 08/24/16 15:50 08/24/16 15:50 08/24/16 15:50 08/24/16 15:50 08/24/16 15:50 Laboratory Results 08/22/16 04:33 08/24/16 13:00 08/23/16 08/24/16 08/25/16 05:59 05:59 05:59 Intake Total 700 1030 480 Output Total 7230 3795 600 Balance -6550 -2765 -120 PT 14.9 SEC (12.0-15.0) 08/15/16 13:20 INR 1.17 (0.83-1.16) H 08/15/16 13:20 awake alert nad anicteric jvd elevated rrr systolic murmur cta with dec bs at bases soft obese nt 2-3+ pitting edema ble warm dry well perfused oriented appropriate ICD10 Worksheet Patient Problems: Problems Problem Status Onset Atrial fibrillation Acute Congestive heart failure Acute
[2016-08-24 18:24] LABS: POTASSIUM 4.1 mEq/L (3.5-5.2)
[2016-08-24] MEDS: ASPIRIN 81 MG CHEWABLE TAB PO SCH (21:00)
[2016-08-24] MEDS: ATORVASTATIN CALCIUM 20 MG TAB PO SCH (21:00)
[2016-08-24] MEDS: ENOXAPARIN 120 MG/0.8 ML SYR SC SCH (21:00)
[2016-08-25 06:52] LABS: IONIZED CALCIUM 1.12 MMOL/L (1.12-1.30)
[2016-08-25 07:54] LABS: ANION GAP 6 mEq/L (8-16); CALCIUM 8.8 mg/dL (8.5-10.4); CARBON DIOXIDE 38 mEq/l (22-31); CHLORIDE 90 mEq/L (97-110); CREATININE 0.9 mg/dL (0.7-1.3); GLOMERULAR FILTRATION RATE > 60; GLUCOSE 167 mg/dL (70-100); MAGNESIUM 1.9 mg/dL (1.6-2.3); POTASSIUM 3.6 mEq/L (3.5-5.2); SODIUM 134 mEq/L (134-144)
[2016-08-25] MEDS: ENOXAPARIN 120 MG/0.8 ML SYR SC SCH ×2 (08:48→21:43)
[2016-08-25] MEDS: ALLOPURINOL 300 MG TAB PO SCH (08:48)
[2016-08-25] MEDS: OMEGA-3 FATTY ACIDS 1,000 MG CAP PO SCH (08:48)
[2016-08-25] MEDS: CHOLECALCIFEROL VIT D3 1,000 UNITS TAB PO SCH (08:48)
[2016-08-25] MEDS: MULTIVITAMINS 1 EACH TAB PO SCH (08:48)
[2016-08-25] MEDS: CARVEDILOL 25 MG TAB PO SCH ×2 (08:48→18:33)
[2016-08-25] MEDS: FUROSEMIDE 40 MG/4 ML VIAL IVP SCH ×2 (08:49→16:17)
[2016-08-25] MEDS: INSULIN LISPRO 100 UNIT/ML SC SCH ×3 (08:49→18:33)
[2016-08-25] MEDS ORDERED: INSULIN GLARGINE 100 UNITS/ML SYRINGE SC SCH (09:00)
[2016-08-25] MEDS ORDERED: POTASSIUM CL 10 MEQ TAB PO ONE ×2 (09:04→20:59)
[2016-08-25] MEDS: acetaZOLAMIDE 250 MG TAB PO SCH ×2 (10:58→21:45)
--- NOTE | 2016-08-25 12:07 | PDCARPN ---
Cardiology Progress Note Chief Complaint: Patient reports continue shortness of breath with exertion, but feels improvement over last few days. Assessment/Plan: Assessment: 56-year-old male with significant history of cardiomyopathy (ejection fraction 40% outpatient), diabetes, hypertension, gout hyperlipidemia, GENESIS,. Admitted 08/15/2016 for shortness of breath and weight gain. Found to be in persistent atrial fibrillation with bradycardia. Negative troponins x3 on admission. Echocardiogram done on 08/16/2016 shows LV systolic function mildly reduced at 40 % with apical hypokinesis. Mild concentric LVH, diastolic dysfunction, grossly normal RV size and function, mild LA dilation borderline RA dilation, no MR, poorly visualized pulmonic valve. Since hospitalization, carvedilol dosage has been decreased down to 25 mg p. o. twice daily, digoxin dose held with heart rate increase to WNL. MPI stress test results from 08/23/2016, show stress and rest imaging showed fixed diminished attenuation along the inferior wall and distal anterior wall septal junction, extending down to apex, LV cavity was dilated at both rest stress imaging, but no significant evidence of myocardial ischemia. Patient has had chest pressure or pain hospitalization. Has been bolus and continuous IV Lasix drip with metolazone. Currently getting Lasix 40 mg IV twice daily. Today, am laboratory studies showed mild improvement chloride and CO2. BUN remained stable. No significant bump in creatinine. Weight is down 1.6 kilos from yesterday, net output 1145 last 24 hours. Total weight loss since hospitalization of 17.8 kilos. Remains in atrial fibrillation, occasional RVR. Denies of any chest pressure. Continues to have sudden desaturation without oxygen therapy. Plan: 1. Acute on chronic systolic and diastolic heart failure: Continue to diurese with Lasix. 1.6 kilos weight loss since yesterday. Total weight loss since hospitalization of 17.8 kilos. Continues to have +3 peripheral edema. No significant CO2 climb with D/C metolazone. I did speak to Dr. Parmar, [facility]'s heart failure specialist, and have asked him to consult. He will see later today. Per his recommendation, due to the metabolic alkalosis, will start him on Diamox 500 mg p. o. twice daily along with Lasix. Plan right and left heart catheterization in a.m. with Dr Gutierrez. Will hold Lovenox after p.m. dose tonight. 2. Apical wall akinesis: Echocardiogram done on admission showing apical wall akinesis, abnormal MPI study showing fixed diminished attenuation along the inferior wall and distal anterior wall septal junction, extending down to apex, no ischemia. Patient reports no history chest pressure pain. With recent heart failure, abnormal stress test, and multiple cardiac risk factors including diabetes, felt best that the patient be further evaluated. Heart catheterization as above. Continue aspirin and coreg. 3. Cardiomyopathy: Patient restarted on carvedilol at 25 mg p.o. twice daily. NIA on admission which has resolved. Creatine today WNL. Consider starting on ROMAINE-inhibitor near future after intense diuresis. Consider starting on Aldactone. 4. Persistent atrial fibrillation: Rate well controlled today, continue on current dose of carvedilol. Digoxin has been on hold since admission. Patient' s [id number] score of 3. Currently being anticoagulation with Lovenox. Plan MAURILIO/CV before Heart catheterization in Tomorrow. 5. Hypertension: BP appears well controlled on Coreg, Norvasc, and diuretic therapy. 6. GENESIS: Continue on CPAP therapy. 7. Hyperlipidemia: Continue on statin therapy. 8. Diabetes: Med adjustments per hospitalist services 9. Hypokalemia: Electrolyte replacement protocol in place. Continue to monitor 10. NIA: Continue to monitor while on diuretic therapy. 08/25/16 11:48 Subjective: Denies of any chest pressure or pain, palpitations, lightheadedness, near- syncope or syncopal Reviewed/Discussed With: family ( Patient's ), other (Dr Gutierrez and Dr Boucher) Objective: Vital Signs (8 Hrs) Temp Pulse Resp BP Pulse Ox 08/25/16 08:00 37.0 C 86 15 125/69 H 92 08/25/16 04:00 36.5 C 105 H 18 125/79 H 91 L Intake/Output (24 Hrs) 08/24/16 08/25/16 08/26/16 05:59 05:59 05:59 Intake Total 1030 680 300 Output Total 3795 1825 650 Balance -2765 -1145 -350 Intake: Oral (ml) 1030 680 300 Output: Urine (ml) 1395 1825 650 Urinal 3795 1825 650 Other: Weight 122.6 kg 121 kg Number of Stools Urinal 1 Result Diagrams: 08/22/16 04:33 08/25/16 06:40 Cardiac Labs: Cardiac Lab Results (72 Hrs) 08/22/16 14:30 Troponin I 0.032 - Physical Exam Constitutional: no apparent distress, obese Ears, Nose, Mouth, Throat: moist mucous membranes Cardiovascular: no rubs, systolic murmur (1-2/6 LSB), irregularly irregular ( AFib on monitor.), jugular vein distention (5-6 Cm above sternal notch), pulses symmetric bilat, No carotid bruit Peripheral Pulses: 1+: dorsalis-pedis (R), dorsalis-pedis (L), 2+: carotid (R), carotid (L) Respiratory: other ( diminished in bases, with no rhonchi, rales, or wheezing noted. No accessory muscle use.) Gastrointestinal: normoactive bowel sounds, other ( Obese) Skin: warm, No no edema ( +3 pitting edema bilateral lower extremities to thighs.) Neurologic: AAOx3 Psychiatric: cooperative, interactive, following commands ICD10 Worksheet Patient Problems: Problems Problem Status Onset Congestive heart failure Acute Atrial fibrillation Acute
[2016-08-25] MEDS ORDERED: NITROGLYCERIN 0.4 MG BTL SL PRN (12:11)
[2016-08-25] MEDS ORDERED: CALCIUM GLUCONATE 50 ML IV ONE (12:24)
[2016-08-25 13:53] LABS: GLUCOSE 358 mg/dL (70-100)
--- NOTE | 2016-08-25 19:05 | HOSPPROG ---
Hospitalist Progress Note Assessment/Plan: * Acute on chronic systolic CHF exacerbation - EF 40% -good diuresis -Diamox for metabolic alkalosis * Suspect coronary ischemia - new akinetic apex -cardiac cath in am * Afib -MAURILIO/cardioversion in am -bblocker/ digoxin -full dose SubQ Lovenox - change to Eliquis post cath * Morbid obesity BMI 47 * DM II - severe am hypoglycemia -decrease Lantus - change to AM dosing -restart metformin post cath * Acute respiratory failure -wean O2 with diuresis * Gout - allopurinol * GENESIS - CPAP Subjective: no complaints, feeling better with great diuresis Objective: Vital Signs Temp Pulse Resp BP Pulse Ox 36.6 C 84 18 123/78 H 90 L 08/25/16 16:00 08/25/16 16:00 08/25/16 16:00 08/25/16 16:00 08/25/16 16:00 Laboratory Results 08/22/16 04:33 08/25/16 13:10 08/24/16 08/25/16 08/26/16 05:59 05:59 05:59 Intake Total 1030 680 800 Output Total 3795 1825 2075 Balance -2765 -1145 -1275 PT 14.9 SEC (12.0-15.0) 08/15/16 13:20 INR 1.17 (0.83-1.16) H 08/15/16 13:20 EKG viewed, my personal interpretation is - afib with rapid rate, anterior/ inferior Q waves Nuclear stress test - no ischemia - Physical Exam Constitutional: no apparent distress, appears nourished, not in pain Cardiovascular: regular rate and rhythym, no murmur, rub, or gallop, edema (3+) Respiratory: no respiratory distress, no rales or rhonchi, clear to auscultation Gastrointestinal: normoactive bowel sounds, soft, non-tender abdomen, no palpable masses Skin: no rashes or abrasions, no fluctuance, no induration Neurologic: AAOx3, sensation intact bilaterally Psychiatric: interacting appropriately, not anxious, not encephalopathic, thought process linear ICD10 Worksheet Patient Problems: Problems Problem Status Onset Atrial fibrillation Acute Congestive heart failure Acute
[2016-08-25 20:52] LABS: POTASSIUM 3.8 mEq/L (3.5-5.2)
[2016-08-25] MEDS: ATORVASTATIN CALCIUM 20 MG TAB PO SCH (21:44)
[2016-08-25] MEDS: ASPIRIN 81 MG CHEWABLE TAB PO SCH (21:44)
[2016-08-26] MEDS ORDERED: diphenhydrAMINE 25 MG CAP PO ONE ×2 (06:00→08:32)
[2016-08-26] MEDS ORDERED: NS 1,000 ML IV ONE ×2 (06:00→08:32)
[2016-08-26 06:35] LABS: IONIZED CALCIUM 1.19 MMOL/L (1.12-1.30)
[2016-08-26 06:38] LABS: % IMMATURE GRANULYOCYTES 0.4 % (0.0-1.1); ABSOLUTE IMMATURE GRANULOCYTES 0.04 10^3/uL (0.00-0.10); ADD DIFF? NO; ADD MORPH? NO; ADD SCAN? NO; ATYPICAL LYMPHOCYTE FLAG 10 (0-99); FRAGMENT RBC FLAG 0 (0-99); HEMATOCRIT 37.5 % (40.0-51.0); HEMOGLOBIN 11.7 g/dL (13.7-17.5); LEFT SHIFT FLG 0 (0-99); LIPEMIA HEMOLYSIS FLAG 80 (0-99); MEAN CELL HEMOGLOBIN 28.3 pg (27.9-34.1); MEAN CELL HEMOGLOBIN CONCENTR. 31.2 g/dL (32.4-36.7); MEAN CELL VOLUME 90.8 fL (81.5-99.8); MEAN PLATELET VOLUME 10.4 fL (8.7-11.7); PLATELET CLUMPS FLAG 0 (0-99); PLATELET COUNT 218 10^3/uL (150-400); RED BLOOD CELL COUNT 4.13 10^6/uL (4.40-6.38); RED CELL DISTRIBUTION WIDTH 14.8 % (11.5-15.2)
[2016-08-26 06:48] LABS: APTT 39.9 SEC (23.0-38.0); INR 1.16 (0.83-1.16); PROTIME(PATIENT) 14.8 SEC (12.0-15.0)
[2016-08-26 07:05] LABS: ANION GAP 8 mEq/L (8-16); CALCIUM 9.1 mg/dL (8.5-10.4); CARBON DIOXIDE 32 mEq/l (22-31); CHLORIDE 94 mEq/L (97-110); GLOMERULAR FILTRATION RATE > 60; GLUCOSE 178 mg/dL (70-100); POTASSIUM 3.9 mEq/L (3.5-5.2); SODIUM 134 mEq/L (134-144)
[2016-08-26 07:09] LABS: DIGOXIN < 0.4 ng/mL (0.8-2.0)
[2016-08-26] MEDS: INSULIN LISPRO 100 UNIT/ML SC SCH ×3 (07:47→18:53)
[2016-08-26] MEDS ORDERED: NON-FORMULARY NEW DRUG (Metformin Hcl [Glucophage 1000 Mg] 1,000 MG) PO SCH (08:00)
[2016-08-26] MEDS ORDERED: DIAZEPAM 5 MG TAB PO ONE (08:32)
[2016-08-26] MEDS ORDERED: FAMOTIDINE 20 MG TAB PO ONE (08:32)
[2016-08-26] MEDS ORDERED: MIDAZOLAM 2 MG/2 ML VIAL IVP ONE (08:32)
[2016-08-26] MEDS ORDERED: PROPOFOL 200 MG/20 ML VIAL IVP ONE (08:32)
[2016-08-26] MEDS ORDERED: ASPIRIN EC 325 MG TAB PO ONE (08:32)
[2016-08-26] MEDS ORDERED: fentaNYL 100 MCG/2 ML INJ IVP ONE (08:32)
[2016-08-26] MEDS ORDERED: BENZOCAINE UNIT DOSE SPRAY HURRICAINE MM ONE (08:32)
[2016-08-26] MEDS ORDERED: ATROPINE SULFATE 1 MG/10 ML SYR ONE (08:38)
[2016-08-26] MEDS: CARVEDILOL 25 MG TAB PO SCH ×2 (09:03→18:53)
[2016-08-26] MEDS: ALLOPURINOL 300 MG TAB PO SCH (09:03)
[2016-08-26] MEDS: acetaZOLAMIDE 250 MG TAB PO SCH ×2 (09:03→09:20)
[2016-08-26] MEDS: metFORMIN HCL 500 MG TAB PO SCH (09:04)
[2016-08-26] MEDS: FUROSEMIDE 40 MG/4 ML VIAL IVP SCH (09:18)
--- NOTE | 2016-08-26 10:08 | CPEKG ---
Heart Rate: 86 RR Interval: 698 QRSD Interval: 110 QT Interval: 388 QTC Interval: 464 QRS Manly: -63 T Wave Manly: 83 EKG Severity - ABNORMAL ECG - EKG Impression: ATRIAL FIBRILLATION, V-RATE 70-106 EKG Impression: NONSPECIFIC IVCD WITH LAD EKG Impression: INFERIOR INFARCT, AGE INDETERMINATE EKG Impression: ANTERIOR INFARCT, OLD Electronically Signed By: Narciso Reese 26-Aug-2016 16:54:50
[2016-08-26] MEDS ORDERED: LIDOCAINE 2% 100 MG/5 ML SYR ONE (10:10)
[2016-08-26] MEDS ORDERED: LIDOCAINE 1% 300 MG/30 ML SDV ONE (10:24)
[2016-08-26] MEDS ORDERED: IOPAMIDOL (ISOVUE-370) 150 ML BTL IV ONE (10:25)
[2016-08-26] MEDS ORDERED: PROPOFOL/EMULSION 500 MG/50 ML BOTTLE IV ONE (10:58)
--- NOTE | 2016-08-26 12:38 | PDDXCAT ---
Diagnostic Cath Note - . Date: 08/26/16 [employer]: Brenda Indication: other (abnormal nuclear stress test) High-risk criteria on non-invasive testing: severe resting left ventricular dysfunction (LVEF<35%) - Procedure Access: right groin Procedure: left heart catheterization, coronary angiography, right heart catheterization - Materials Left Heart Cath size: 6F Left Heart Cath materials: JL4.0, JR4.0 Right Heart Cath size: 7F (8 F for IV access) - Findings-Left Heart Catheterization LM: normal LAD: 40% mid vessel stenosis. 2 normal diagonals LCX: normal. one OM. normal RCA: dominant. normal Ramus: normal - Findings-Right Heart Catheterization RA: 17 RV: 60/12 PA: 59/32 mean 41 PAOP: 31 AO: 116/77 CO: 114/15 Complications: none Estimated blood loss: <50ml Closure method: manual pressure Assessment: mod nonflow limiting LAD disease. severe systolic heart failure Plan: continue aggressive medical management of his NICMP Patient Problems: Problems Problem Status Onset Congestive heart failure Acute Atrial fibrillation Acute
[2016-08-26] MEDS ORDERED: ATROPINE SULFATE 1 MG/10 ML SYR IVP PRN (13:47)
[2016-08-26] MEDS ORDERED: POTASSIUM Cl (KCl) 50 ML IV ONE (14:28)
--- NOTE | 2016-08-26 14:44 | SOAPPROG ---
[facility] Progress Note Assessment/Plan: Assessment: CHF consult performed and dictated. 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 Admitted 08/15/16 with 50lbs weight, massive anasarca and class IV NYHA sx. Echo 08/27 shows LVEF 40%. L/R cardiac cath today shows 40% non-obstructive lesion in LAD o/w okay coronaries. RHC: RA 17, PA 59/32 (41), PCWP 31. He no longer has rest shortness of breath. Also found to be in new afib with KARISHMA clot. REC: 1)increase Lasix to 60mg IV bid 2)add aldactone 25mg PO BID 3)increase Lisinopril to 20mg PO BID 4)probably another 2-3 days of IV diuretics then switch to PO Demadex and maybe home Monday. 5)MAURILIO/CV in six weeks as outpt in resolved KARISHMA clot. Thanks. Will follow with you. 08/26/16 14:40 Objective: Vital Signs Temp Pulse Resp BP Pulse Ox 36.7 C 97 12 109/73 93 08/26/16 04:00 08/26/16 07:15 08/26/16 07:15 08/26/16 07:15 08/26/16 07:15 Laboratory Results 08/26/16 06:20 08/26/16 06:20 08/25/16 08/26/16 08/27/16 05:59 05:59 05:59 Intake Total 680 950 Output Total 4743 8165 Balance -1145 -2345 PT 14.8 SEC (12.0-15.0) 08/26/16 06:20 INR 1.16 (0.83-1.16) 08/26/16 06:20 ICD10 Worksheet Patient Problems: Problems Problem Status Onset Atrial fibrillation Acute Congestive heart failure Acute
--- NOTE | 2016-08-26 14:47 | CPIP ---
[f rep st] INVASIVE CARDIAC PROCEDURE DATE OF PROCEDURE: 08/26/2016 PRIMARY CARPET SEWING MACHINE OPERATOR: Wilner Talavera MD. PROCEDURES: 1. Left heart catheterization. 2. Right heart catheterization. 3. Coronary angiography. INDICATIONS: Class 3 systolic heart failure and abnormal nuclear stress test. COMPLICATIONS: None. DESCRIPTION OF PROCEDURE: N.p.o. status was confirmed, informed consent obtained, and time-out perf ormed. Sedation was provided by Dr. Irby of the anesthesia service. One percent lidocaine was used for local anesthesia of the right groin area. Using modified Seldinger technique, an 8-Argent[place] introducer sheath was placed in the right common femoral vein. A 6-Argentine introducer sheath was eva carlos in the right common femoral artery. JL4 catheter was used to image the left coronary system. J R4 4 catheter was used for right coronary angiography as well as left ventricular pressures. [place]-G anz catheter was used for right heart catheterization. FINDINGS: RIGHT HEART CATHETERIZATION HEMODYNAMICS: The patient was on oxygen via nasal cannula at 6 L/min due to chronic hypoxic respiratory failure. He was also on CPAP because of his history of sleep apnea. RA pressure is 17. RV pressure is 60/12 with an end-diastolic of 21, PA pressure 59/32 with a mean PA pressure 41, wedge pressure 31. Aortic pressure 116/77. LV pressure 114/15 with an end-diastolic pressure of 26. Calculated Shaji cardiac output is 4.63 L/min with a cardiac index of 2.12 L/min per meter squared. Saturations: Arterial saturation 94% with the above-mentioned supplemental oxygen and CPAP. PA sat was 57, RV sat was 57, and RA sat was 56.6. There is no significant intracardiac shunting. CORONARY ANGIOGRAPHY: 1. The left main is large and bifurcates into the LAD and left circumflex. There is no significant coronary disease in the left main. 2. The LAD reaches the apex. There are 2 principal diagonal vessels. In the mid LAD, there is a 4 0% lesion. 3. The left circumflex has 1 principal obtuse marginal. No significant coronary disease. 4. There is ramus intermedius with no significant coronary disease. 5. The right coronary artery is dominant. There is no flow-limiting disease. CONCLUSIONS: 1. Moderate nonflow limiting left anterior descending disease in this right dominant system. 2. Severe systolic dysfunction with a known ejection fraction of 25% to 30%. Elevated wedge pressu re and elevated pulmonary artery pressures. 3. Continue aggressive medical management and diuresis of the patient's nonischemic cardiomyopathy. 4. The patient had his right femoral arterial sheath removed and manual pressure held. 5. He will be taken back to [facility] in stable condition. 6. Discussed with the patient's . /[id number]/MODL
[2016-08-26] MEDS: FUROSEMIDE 100 MG/10 ML VIAL IVP SCH (15:54)
[2016-08-26] MEDS: OMEGA-3 FATTY ACIDS 1,000 MG CAP PO SCH (15:55)
[2016-08-26] MEDS: INSULIN GLARGINE 100 UNITS/ML SYRINGE SC SCH (15:55)
[2016-08-26] MEDS: CHOLECALCIFEROL VIT D3 1,000 UNITS TAB PO SCH (15:55)
[2016-08-26] MEDS: SPIRONOLACTONE 25 MG TAB PO SCH (15:56)
[2016-08-26] MEDS: MULTIVITAMINS 1 EACH TAB PO SCH (15:56)
[2016-08-26] MEDS: LISINOPRIL 20 MG TAB PO SCH (15:56)
--- NOTE | 2016-08-26 16:12 | HOSPPROG ---
Hospitalist Progress Note Assessment/Plan: * Acute on chronic systolic CHF exacerbation - EF 40% -good diuresis - increase lasix - still volume up -Diamox for metabolic alkalosis * Non - ischemic cardiomyopathy -cardiac cath with non-obstructive CAD * Afib -MAURILIO with KARISHMA clot - no cardioversion -coreg -Eliquis - reattempt MAURILIO/CV 6 weeks * Morbid obesity BMI 47 * DM II - severe am hypoglycemia -decrease Lantus - change to am dosing -restart metformin post cath 48 hours * Acute respiratory failure -wean O2 with diuresis * Gout - allopurinol * GENESIS - CPAP Subjective: no complaints. Objective: Vital Signs Temp Pulse Resp BP Pulse Ox 36.7 C 97 12 158/88 H 93 08/26/16 04:00 08/26/16 07:15 08/26/16 07:15 08/26/16 16:00 08/26/16 07:15 Laboratory Results 08/26/16 06:20 08/26/16 06:20 08/25/16 08/26/16 08/27/16 05:59 05:59 05:59 Intake Total 680 950 Output Total 1825 3295 625 Balance -1145 -2345 -625 PT 14.8 SEC (12.0-15.0) 08/26/16 06:20 INR 1.16 (0.83-1.16) 08/26/16 06:20 EKG viewed, my personal interpretation is - afib, rate 86, no ischemic changes d/w Bishnu [facility] cardiology SCHEDULE CHECKER - wedge elevated on cath - still volume that needs to come off - Physical Exam Constitutional: no apparent distress, appears nourished, not in pain Cardiovascular: regular rate and rhythym, no murmur, rub, or gallop, edema (3+) Respiratory: no respiratory distress, no rales or rhonchi, clear to auscultation Gastrointestinal: normoactive bowel sounds, soft, non-tender abdomen, no palpable masses Skin: no rashes or abrasions, no fluctuance, no induration Neurologic: AAOx3, sensation intact bilaterally Psychiatric: interacting appropriately, not anxious, not encephalopathic, thought process linear ICD10 Worksheet Patient Problems: Problems Problem Status Onset Atrial fibrillation Acute Congestive heart failure Acute
--- NOTE | 2016-08-26 16:16 | GCON ---
[f rep st] CONSULTATION CHF CONSULT. DATE OF CONSULTATION: 08/26/2016 REASON FOR CONSULTATION: Evaluate gentleman with acute on chronic systolic heart failure and recomm end future CHF management. HISTORY OF PRESENT ILLNESS: I was asked by Dr. Maryana Gutierrez to consult for the above reasons. The patient is a 56-year-old gentleman with the following cardiac history: He reports he first deve loped heart failure in 1996 after having a viral infection and had a severely weakened left ventricu lar systolic function. He was treated by Dr. Joe Fox and was started on CHF medicines and he r eports his LV function normalized. He has not been feeling well for the last 3-4 months. He was ad mitted 11 days ago with a 50 pound weight gain and anasarca and class 4 heart failure symptoms. He was also found to be in atrial fibrillation 2 weeks before hospitalization which was new for him. In the hospital he has diuresed about 20-30 pounds. An updated echo demonstrates an LVEF of 40%. A left and right heart catheterization done today demonstrates focal moderate 40% LAD lesion with no obstructive coronary disease. Right heart hemodynamics demonstrated a mean RA of 17, PA 59/32 with a mean pulmonary artery pressure of 41 and a mean pulmonary capillary wedge pressure of 31. He had a transesophageal echo, which suggested a left atrial thrombus. He no longer has rest dyspnea or or thopnea. He denies chest pain. He still has lots of edema. PAST MEDICAL HISTORY: Acute on chronic heart failure with an LVEF of 40%. Insulin-dependent diabet es mellitus x15 years, hypertension, gout, chronic morbid obesity, sleep apnea and diffuse arthritis . PAST SURGICAL HISTORY: Multiple orthopedic surgeries but no chest surgery. CURRENT MEDICATIONS: Diamox 500 mg b.i.d., allopurinol 300 mg per day. Norvasc 10 mg per day. Tika quintin 5 mg b.i.d., aspirin 81 mg per day, atorvastatin 20 mg per day, Coreg 25 mg twice daily, Lasix 40 mg IV q.12 hours, lisinopril 10 mg per day, metformin and insulin. ALLERGIES: No known drug allergies. SOCIAL HISTORY: Patient is . He has minimal alcohol intake and does not smoke. FAMILY HISTORY: Positive for premature coronary artery disease but not for premature heart failure. REVIEW OF SYSTEMS: The patient reports no recent fevers, chills, cough, or hemoptysis. He has no G I bleed symptoms such as hematemesis, melena, or bright red blood per rectum. Rest of 10-point revi ew of systems is negative. PHYSICAL EXAM: VITAL SIGNS: Afebrile, pulse 97 and irregularly irregular. Blood pressure 204/114, respirations 20, weight 117.4 kg. GENERAL: A moderately obese gentleman, in no acute distress with out chest pain or using excess respiratory muscles. EYES: Pupils equal, reactive to light. ENT: O ral mucosa with no cyanosis. NECK: Jugular venous pressure to 10-11 cm. Carotid pulses 2+ bilateral ly with no obvious bruits. No nuchal rigidity. LUNGS: Clear to auscultation bilaterally without ral es, rhonchi, or wheezing. HEART: Increased PMI, irregularly irregular with 1/6 nonradiating systoli c murmur and no S3. ABDOMINAL: Soft, nontender. No guarding or rebound. No obvious hepatosplenome karissa or ascites. EXTREMITIES: 1+ peripheral pulses including femoral and pedal pulses. 2+ edema to just above the level of his knees bilaterally. MUSCULOSKELETAL: No scoliosis. NEURO: Normal affect and mood. SKIN: No bleeding or cyanosis. EKG: Atrial fibrillation at 86 beats per minute with interventricular conduction delay and old infer ior and anterior Q-waves. LABS: White count 10.8, hematocrit 38, platelets 218,000, MCV 91, INR 1.13, sodium 134, potassium 3 .9, chloride 94, bicarb 32, BUN 26, creatinine 1.0, glucose 178. IMPRESSION: 56-year-old gentleman with acute on chronic nonischemic systolic heart failure with an LVEF of 40% and Class 3-4 [place] [employer] symptoms. He has evidence of biventricular hea rt failure with his RV function not working well either. I think it will be hard to get him back in to sinus rhythm until he is further diuresed and his clot has had 6 weeks on Eliquis. RECOMMENDATIONS: 1. Would increase Lasix to 60 mg IV q.12 hours for 2-3 more days and then probably switch to p.o. D emadex. 2. Would start on Aldactone 25 mg p.o. twice daily. 3. He is quite hypertensive and would go up on his lisinopril to 20 mg twice daily. 4. Rest of medications without change. 5. Hopefully will be able to transition to p.o. Demadex and discharge home in 3-4 days. Would kaylyn mmend a MAURILIO cardioversion probably in 6 weeks as he is more stabilized had time on Eliquis. Copy requested to: Chart at [facility] /[id number]/MODL
--- NOTE | 2016-08-26 16:36 | ECHO ---
[id number] + + [address] : : [facility] [address] : : [phone] + + Transesophageal Echocardiographic Report + + :Name: DEE BUTTERFIELD Shane Study Date: 08/26/2016 10:19 AM : : Hospital Admission Number: [id number] : :: 1960 Gender: Male : :Age: 56 yrs Race: WH : :Reason For Study: Eval KARISHMA : :History: Pre Cardioversion/Cath : + + Left Ventricle Ejection Fraction = 25-30%. There is moderate global hypokinesis of the left ventricle. Atria Injection of contrast documented no interatrial shunt. The interatrial septum is intact with no evidence for an atrial septal defect. Spontaneous contrast in LA. Spontaneous contrast in left atrial appendage. There is a thrombus seen in the left atrial appendage. Mitral Valve The mitral valve is normal. There is no mitral valve stenosis. There is mild to moderate mitral regurgitation. Tricuspid Valve Normal tricuspid valve. There is trace to mild tricuspid regurgitation. Aortic Valve The aortic valve is trileaflet. The aortic valve opens well. There is no aortic stenosis. There is no aortic insufficiency. Pulmonic Valve The pulmonic valve is normal in structure and function. There is no pulmonic valvular regurgitation. Vessels The aortic root is normal size. Pericardium There is no pericardial effusion. Procedure NPO status was confirmed. Informed consent obtained. Time out performed. Sedation was provided by the anesthesia service. MAURILIO probe passed without difficulty. DCCV was not performed due to presence of left atrial appendage thrombus. Conclusion A 2D transesophageal echocardiogram with color flow Doppler was performed. There is moderate global hypokinesis of the left ventricle. Ejection Fraction = 25-30%. Injection of contrast documented no interatrial shunt. The interatrial septum is intact with no evidence for an atrial septal defect. Spontaneous contrast in LA. Spontaneous contrast in left atrial appendage. There is a thrombus seen in the left atrial appendage. The mitral valve is normal. There is mild to moderate mitral regurgitation. There is trace to mild tricuspid regurgitation. The aortic valve is trileaflet. The aortic valve opens well. Cardioversion is postponed at this time. Final Reading Physician: Dr Maryana Gutierrez electronically signed on 08/26/2016 04:35 PM Ordering Physician: Bishnu Benito Performed By: Dr Maryana Gutierrez
[2016-08-26] MEDS: ACETAMINOPHEN 325 MG TAB PO PRN (19:57)
[2016-08-26 21:04] LABS: POTASSIUM 4.3 mEq/L (3.5-5.2)
[2016-08-26] MEDS: APIXABAN 5 MG TAB PO SCH (21:24)
[2016-08-26] MEDS: ATORVASTATIN CALCIUM 20 MG TAB PO SCH (21:24)
[2016-08-26] MEDS: ASPIRIN 81 MG CHEWABLE TAB PO SCH (21:24)
[2016-08-27] MEDS: acetaZOLAMIDE 250 MG TAB PO SCH ×3 (00:10→21:42)
[2016-08-27] MEDS: LISINOPRIL 20 MG TAB PO SCH ×2 (00:10→08:20)
[2016-08-27] MEDS: SPIRONOLACTONE 25 MG TAB PO SCH ×3 (00:11→21:42)
[2016-08-27 03:08] LABS: IONIZED CALCIUM 1.16 MMOL/L (1.12-1.30)
[2016-08-27 03:28] LABS: ANION GAP 9 mEq/L (8-16); CALCIUM 8.6 mg/dL (8.5-10.4); CARBON DIOXIDE 29 mEq/l (22-31); CHLORIDE 97 mEq/L (97-110); CHOLESTEROL 61 mg/dL (140-220); CHOLESTEROL/HDL RATIO 3.81 RATIO (1.00-4.97); CREATININE 1.2 mg/dL (0.7-1.3); GLOMERULAR FILTRATION RATE > 60; GLUCOSE 206 mg/dL (70-100); HIGH DENSITY LIPOPROTEIN 16 mg/dL (40-65); LDL/HDL RATIO 1.19 RATIO (1.00-3.64); LOW DENSITY LIPOPROTEIN 19 mg/dL (80-100); NON-HIGH DENSITY LIPOPROTEIN 45 mg/dL (90-129); SODIUM 135 mEq/L (134-144); TRIGLYCERIDE 131 mg/dL (40-150); VERY LOW DENSITY LIPOPROTEINS 26 mg/dL (8-25)
[2016-08-27] MEDS: INSULIN LISPRO 100 UNIT/ML SC SCH ×3 (08:13→17:29)
[2016-08-27] MEDS: CARVEDILOL 25 MG TAB PO SCH ×2 (08:14→17:43)
[2016-08-27] MEDS: OMEGA-3 FATTY ACIDS 1,000 MG CAP PO SCH (08:19)
[2016-08-27] MEDS: MULTIVITAMINS 1 EACH TAB PO SCH (08:19)
[2016-08-27] MEDS: CHOLECALCIFEROL VIT D3 1,000 UNITS TAB PO SCH (08:20)
[2016-08-27] MEDS: ALLOPURINOL 300 MG TAB PO SCH (08:20)
[2016-08-27] MEDS: APIXABAN 5 MG TAB PO SCH ×2 (08:20→21:42)
[2016-08-27] MEDS: FUROSEMIDE 100 MG/10 ML VIAL IVP SCH ×2 (08:20→15:04)
[2016-08-27] MEDS: INSULIN GLARGINE 100 UNITS/ML SYRINGE SC SCH (08:27)
--- NOTE | 2016-08-27 08:34 | SOAPPROG ---
SOAP Progress Note Assessment/Plan: Assessment: 56 y/o man with development of post-viral CHF in 1996 that reportedly responded to meds with near normalization of LVEF. Admitted 08/15/16 with 50lbs weight, massive anasarca and class IV NYHA sx. Echo 08/27 shows LVEF 40%. L/R cardiac cath today shows 40% non-obstructive lesion in LAD o/w okay coronaries. RHC: RA 17, PA 59/32 (41), PCWP 31. He no longer has rest shortness of breath. Also found to be in new afib with KARISHMA clot. Diuresing well and BP controlled. REC: 1)decrease Lisinopril to 20mg PO qam (rather than BID). 2)rest of meds without changes. 3)labs at 4pm today ([facility]) 4)probably change from IV lasix to PO Demadex monday afternoon and home from cardiac standpoint Monday. 5)Fluid restrict 64oz day total fluids and NACL 2000mmols per day. 08/27/16 08:31 Subjective: feels well. Less shortness of breath and abdominal swelling. Denies CP, palpitations, PND or near syncope when ambulating around hospital room. Objective: Vital Signs Temp Pulse Resp BP Pulse Ox 36.8 C 95 20 108/75 95 08/27/16 08:00 08/27/16 08:00 08/27/16 08:00 08/27/16 08:00 08/27/16 08:00 Laboratory Results 08/26/16 06:20 08/27/16 02:55 08/26/16 08/27/16 08/28/16 05:59 05:59 05:59 Intake Total 950 Output Total 3295 2145 Balance -2345 -2145 PT 14.8 SEC (12.0-15.0) 08/26/16 06:20 INR 1.16 (0.83-1.16) 08/26/16 06:20 Physical Exam - Physical Exam General Appearance: alert, obese EENT: PERRL/EOMI Neck: non-tender Respiratory: lungs clear Cardiac/Chest: JVD, systolic murmur (1/6 PADMINI heard), irregularly irregular, No gallop Peripheral Pulses: 2+: carotid (R), carotid (L), femoral (R), femoral (L), dorsalis-pedis (R), dorsalis-pedis (L) Abdomen: non-tender, distended, No guarding Skin: warm/dry Extremities: pedal edema Neuro/Psych: oriented x 3 ICD10 Worksheet Patient Problems: Problems Problem Status Onset Atrial fibrillation Acute Congestive heart failure Acute
[2016-08-27] MEDS ORDERED: LISINOPRIL 20 MG TAB PO SCH (09:00)
[2016-08-27] MEDS ORDERED: LISINOPRIL 10 MG TAB PO SCH (09:00)
--- NOTE | 2016-08-27 11:02 | HOSPPROG ---
Hospitalist Progress Note Assessment/Plan: * Acute on chronic systolic CHF exacerbation - EF 40% -IV Lasix + spironolactone -increase lisinopril -Diamox for metabolic alkalosis * Non-ischemic cardiomyopathy - post-viral -cardiac cath with non-obstructive CAD (40% LAD lesion) * Afib -MAURILIO with KARISHMA clot - no cardioversion -coreg -Eliquis - reattempt MAURILIO/CV 6 weeks * Morbid obesity BMI 47 * DM II - am hypoglycemia improved with am lantus dosing -increase lantus back to home dose -restart metformin post cath 48 hours * Hyperlipidemia - LDL 19 -reduce Lipitor 10mg * Acute respiratory failure -wean O2 with diuresis * Gout - allopurinol * GENESIS - CPAP Subjective: no new complaints, continues to lose water weight and feeling better Objective: Vital Signs Temp Pulse Resp BP Pulse Ox 36.8 C 95 20 108/75 95 08/27/16 08:00 08/27/16 08:00 08/27/16 08:00 08/27/16 08:00 08/27/16 08:00 Laboratory Results 08/26/16 06:20 08/27/16 02:55 08/26/16 08/27/16 08/28/16 05:59 05:59 05:59 Intake Total 950 Output Total 3295 2145 Balance -2345 -2145 PT 14.8 SEC (12.0-15.0) 08/26/16 06:20 INR 1.16 (0.83-1.16) 08/26/16 06:20 - Physical Exam Constitutional: no apparent distress, appears nourished, not in pain Cardiovascular: regular rate and rhythym, no murmur, rub, or gallop, edema (2+) Respiratory: no respiratory distress, no rales or rhonchi, clear to auscultation Skin: no rashes or abrasions, no fluctuance, no induration Neurologic: AAOx3, sensation intact bilaterally Psychiatric: interacting appropriately, not anxious, not encephalopathic, thought process linear ICD10 Worksheet Patient Problems: Problems Problem Status Onset Atrial fibrillation Acute Congestive heart failure Acute
[2016-08-27] MEDS ORDERED: INSULIN GLARGINE 100 UNITS/ML SYRINGE SC ONE (12:00)
[2016-08-27 18:52] LABS: ANION GAP 11 mEq/L (8-16); CALCIUM 9.1 mg/dL (8.5-10.4); CARBON DIOXIDE 27 mEq/l (22-31); CHLORIDE 98 mEq/L (97-110); CREATININE 1.6 mg/dL (0.7-1.3); GLOMERULAR FILTRATION RATE 45; GLUCOSE 163 mg/dL (70-100); POTASSIUM 4.2 mEq/L (3.5-5.2); SODIUM 136 mEq/L (134-144)
[2016-08-27] MEDS: ATORVASTATIN CALCIUM 20 MG TAB PO SCH (21:41)
[2016-08-27] MEDS: ASPIRIN 81 MG CHEWABLE TAB PO SCH (21:42)
[2016-08-28 06:47] LABS: ALANINE AMINOTRANSFERASE 48 IU/L (21-72); ALBUMIN 3.1 g/dL (3.5-5.0); ALKALINE PHOSPHATASE 94 IU/L (38-126); ASPARTATE AMINOTRANSFERASE 31 IU/L (17-59); BILIRUBIN-CONJUGATED 0.5 mg/dL (0.0-0.5); BILIRUBIN-UNCONJUGATED 0.5 mg/dL (0.0-1.1); CALCIUM 8.6 mg/dL (8.5-10.4); CARBON DIOXIDE 27 mEq/l (22-31); CHLORIDE 100 mEq/L (97-110); CREATININE 1.3 mg/dL (0.7-1.3); GLOMERULAR FILTRATION RATE 58; GLUCOSE 157 mg/dL (70-100); SODIUM 137 mEq/L (134-144); TOTAL PROTEIN 5.6 g/dL (6.3-8.2)
[2016-08-28 06:48] LABS: ANION GAP 10 mEq/L (8-16); POTASSIUM 3.9 mEq/L (3.5-5.2)
--- NOTE | 2016-08-28 08:30 | SOAPPROG ---
SOAP Progress Note Assessment/Plan: Assessment: 56 y/o man with development of post-viral CHF in 1996 that reportedly responded to meds with near normalization of LVEF. Admitted 08/15/16 with 50lbs weight, massive anasarca and class IV NYHA sx. Echo 08/27 shows LVEF 40%. L/R cardiac cath today shows 40% non-obstructive lesion in LAD o/w okay coronaries. RHC: RA 17, PA 59/32 (41), PCWP 31. He no longer has rest shortness of breath. Also found to be in new afib with KARISHMA clot. Diuresing well and BP controlled. Near euvolemic now. PLAN: 1)stop IV lasix after this AM dose. 2)start Demadex 40mg PO BID this afternoon. 3)decrease Aldactone to 25mg PO qam. 4)discontinue Amlodipine 5)rest of meds without changes. 6)home Monday AM if doesn't gain back 10lbs off IV lasix. 7)will discuss with Dr. Wilner Willis whether patient will follow up [facility] or [facility] Thanks. 08/28/16 08:26 Subjective: no new complaints. Denies CP, palpitations, near syncope. Ambulated 100-200ft without sx. Not urinating as much as early in hospitalization. Objective: Vital Signs Temp Pulse Resp BP Pulse Ox 36.7 C 76 13 96/65 L 90 L 08/28/16 07:51 08/28/16 07:51 08/28/16 07:51 08/28/16 07:51 08/28/16 07:51 Laboratory Results 08/26/16 06:20 08/28/16 06:15 08/27/16 08/28/16 08/29/16 05:59 05:59 05:59 Intake Total 400 Output Total 2145 1550 Balance -2145 -1150 PT 14.8 SEC (12.0-15.0) 08/26/16 06:20 INR 1.16 (0.83-1.16) 08/26/16 06:20 Physical Exam - Physical Exam General Appearance: alert, obese EENT: normal ENT inspection Neck: non-tender Respiratory: lungs clear Cardiac/Chest: systolic murmur, irregularly irregular, No edema, No gallop, No JVD Peripheral Pulses: 2+: carotid (R), carotid (L), femoral (R), femoral (L), dorsalis-pedis (R), dorsalis-pedis (L) Abdomen: non-tender, No guarding Extremities: non-tender, No pedal edema Neuro/Psych: alert ICD10 Worksheet Patient Problems: Problems Problem Status Onset Atrial fibrillation Acute Congestive heart failure Acute
[2016-08-28] MEDS ORDERED: FUROSEMIDE 40 MG/4 ML VIAL IVP ONE (08:33)
[2016-08-28] MEDS ORDERED: LISINOPRIL 10 MG TAB PO SCH ×2 (09:00)
[2016-08-28] MEDS: SPIRONOLACTONE 25 MG TAB PO SCH (09:36)
[2016-08-28] MEDS: CARVEDILOL 25 MG TAB PO SCH ×2 (09:36→18:27)
[2016-08-28] MEDS: CHOLECALCIFEROL VIT D3 1,000 UNITS TAB PO SCH (09:36)
[2016-08-28] MEDS: OMEGA-3 FATTY ACIDS 1,000 MG CAP PO SCH (09:37)
[2016-08-28] MEDS: MULTIVITAMINS 1 EACH TAB PO SCH (09:37)
[2016-08-28] MEDS: ALLOPURINOL 300 MG TAB PO SCH (09:37)
[2016-08-28] MEDS: APIXABAN 5 MG TAB PO SCH ×2 (09:38→20:57)
[2016-08-28] MEDS: INSULIN LISPRO 100 UNIT/ML SC SCH ×3 (09:38→18:24)
[2016-08-28] MEDS: INSULIN GLARGINE 100 UNITS/ML SYRINGE SC SCH (09:39)
[2016-08-28] MEDS ORDERED: POTASSIUM CL 10 MEQ TAB PO ONE (12:00)
[2016-08-28] MEDS: TORSEMIDE 20 MG TAB PO SCH ×2 (13:09→20:57)
--- NOTE | 2016-08-28 15:38 | HOSPPROG ---
Hospitalist Progress Note Assessment/Plan: * Acute on chronic systolic CHF exacerbation - EF 40% -down 27 kg since admission -now on PO torsemide + spironolactone per Dr. Boucher -increase lisinopril, stop norvasc * Non-ischemic cardiomyopathy - post-viral -cardiac cath with non-obstructive CAD (40% LAD lesion) * Afib -MAURILIO with KARISHMA clot - no cardioversion -coreg -Eliquis - reattempt MAURILIO/CV 6 weeks * Morbid obesity BMI 47 * DM II - am hypoglycemia improved with am lantus dosing -increase lantus back to home dose -restart metformin post cath 48 hours * Hyperlipidemia - LDL 19 -reduce Lipitor 10mg (per patient issue was high TG, not LDL) * Acute respiratory failure -wean O2 with diuresis * Gout - allopurinol * GENESIS - CPAP Home soon if weight remains stable on PO diuretics Subjective: Feeling good. Objective: Vital Signs Temp Pulse Resp BP Pulse Ox 36.7 C 78 18 88/53 L 96 08/28/16 12:00 08/28/16 12:00 08/28/16 12:00 08/28/16 12:00 08/28/16 12:00 Laboratory Results 08/26/16 06:20 08/28/16 06:15 08/27/16 08/28/16 08/29/16 05:59 05:59 05:59 Intake Total 400 300 Output Total 2145 1550 320 Balance -2145 -1150 -20 PT 14.8 SEC (12.0-15.0) 08/26/16 06:20 INR 1.16 (0.83-1.16) 08/26/16 06:20 - Physical Exam Constitutional: no apparent distress, appears nourished, not in pain Cardiovascular: regular rate and rhythym, no murmur, rub, or gallop, edema (1+) Respiratory: no respiratory distress, no rales or rhonchi, clear to auscultation Gastrointestinal: normoactive bowel sounds, soft, non-tender abdomen, no palpable masses Skin: no rashes or abrasions, no fluctuance, no induration Neurologic: AAOx3, sensation intact bilaterally Psychiatric: interacting appropriately, not anxious, not encephalopathic, thought process linear ICD10 Worksheet Patient Problems: Problems Problem Status Onset Atrial fibrillation Acute Congestive heart failure Acute
--- NOTE | 2016-08-28 17:09 | WOCRNPDOC ---
WOCRN Advanced Assessment Note - Skin Integrity Problem, Advanced Assess Left Lower Arm Blister Dressing Type: Allevyn Life Dressing Description: Shadowed Exudate Amount: Minimal Exudate Color: Red, Brown Exudate Characteristic(s): Dried, Sanguinous Integumentary Issue Intervention: Dressing Changed (Cavilon skin protectant, Adaptic Touch, non-bordered foam, gab wrap), Dressing Initialed & Dated, Silver Gel Applied Mee Wound Tissue: Intact Wound Bed Color: Purple Wound Bed Constitution: Dried Exudate Wound Edges: Attached, Well Defined Site Odor: None Site Measurement - Head-to-Toe Length X Width X Depth (cm): 2.5 cm kiersten x 1 cm blister height Skin Integrity Problem Comment: Sanguinous hematoma site has the appearance of a partially de-harjeet blood blister with clotted blood. In order to allow additional time for improvement in clotting function and healing under clot ( and reduce risk of renewed bleeding), applied a protective dressing of Silvasorb gel to open area, Cavilon skin protectant to periwound, Adaptic Touch , non-bordered foam, gab in figure 8 wrap. Discussed signs and symptoms of infection and follow-up recommendations as noted in DC orders, with patient and . Report to LISA Burroughs
[2016-08-28 18:22] LABS: POTASSIUM 4.4 mEq/L (3.5-5.2)
[2016-08-28] MEDS: metFORMIN HCL 500 MG TAB PO SCH (18:27)
[2016-08-28] MEDS: ATORVASTATIN CALCIUM 20 MG TAB PO SCH (20:57)
[2016-08-28] MEDS: ASPIRIN 81 MG CHEWABLE TAB PO SCH (20:58)
[2016-08-29 04:51] LABS: HEMOGLOBIN 10.8 g/dL (13.7-17.5); MEAN CELL HEMOGLOBIN 27.9 pg (27.9-34.1); MEAN CELL HEMOGLOBIN CONCENTR. 30.9 g/dL (32.4-36.7); MEAN CELL VOLUME 90.4 fL (81.5-99.8); RED BLOOD CELL COUNT 3.87 10^6/uL (4.40-6.38); RED CELL DISTRIBUTION WIDTH 15.4 % (11.5-15.2)
[2016-08-29 05:03] LABS: ANION GAP 10 mEq/L (8-16); CALCIUM 8.4 mg/dL (8.5-10.4); CARBON DIOXIDE 24 mEq/l (22-31); CHLORIDE 103 mEq/L (97-110); CREATININE 1.4 mg/dL (0.7-1.3); GLOMERULAR FILTRATION RATE 53; GLUCOSE 74 mg/dL (70-100); POTASSIUM 4.1 mEq/L (3.5-5.2); SODIUM 137 mEq/L (134-144)
[2016-08-29] MEDS: CHOLECALCIFEROL VIT D3 1,000 UNITS TAB PO SCH (08:48)
[2016-08-29] MEDS: TORSEMIDE 20 MG TAB PO SCH (08:48)
[2016-08-29] MEDS: OMEGA-3 FATTY ACIDS 1,000 MG CAP PO SCH (08:48)
[2016-08-29] MEDS: SPIRONOLACTONE 25 MG TAB PO SCH (08:49)
[2016-08-29] MEDS: CARVEDILOL 25 MG TAB PO SCH (08:49)
[2016-08-29] MEDS: metFORMIN HCL 500 MG TAB PO SCH (08:49)
[2016-08-29] MEDS: APIXABAN 5 MG TAB PO SCH (08:50)
[2016-08-29] MEDS: MULTIVITAMINS 1 EACH TAB PO SCH (08:50)
[2016-08-29] MEDS: ALLOPURINOL 300 MG TAB PO SCH (08:50)
[2016-08-29] MEDS: INSULIN GLARGINE 100 UNITS/ML SYRINGE SC SCH (08:51)
[2016-08-29] MEDS: INSULIN LISPRO 100 UNIT/ML SC SCH ×2 (08:52→12:58)
[2016-08-29] MEDS ORDERED: LISINOPRIL 10 MG TAB PO SCH (09:00)
--- NOTE | 2016-08-29 09:00 | SOAPPROG ---
SOAP Progress Note Assessment/Plan: Assessment: 56 y/o man with development of post-viral CHF in 1996 that reportedly responded to meds with near normalization of LVEF. Admitted 08/15/16 with 50lbs weight, massive anasarca and class IV NYHA sx. Echo 08/27 shows LVEF 40%. L/R cardiac cath shows 40% non-obstructive lesion in LAD o/w okay coronaries. RHC: RA 17, PA 59/32 (41), PCWP 31. He no longer has rest shortness of breath. Also found to be in new afib with KARISHMA clot. He is near euvolemic and BP a little low. No angina or pulmonary edema.REC: 1)decrease Lisinopril to 10mg PO qam. 2)rest of meds without changes. 3)okay to discharge home today from cardiology standpoint. 4)labs in five days (CBC and BMP) 5)f/u Cardiology with ecg in 7-10 days. 6)Low NACL diet 2000 mmols/day and fluid restrict 64 oz/day 7)MAURILIO/CV in six weeks if remains in afib 8)work restriction 15-20hrs/week with no night work for six weeks. Thanks. 08/29/16 08:57 Subjective: feels well. Wants to go home. Denies CP, near syncope, JIMÉNEZ or edema. Objective: Vital Signs Temp Pulse Resp BP Pulse Ox 36.6 C 81 20 93/51 L 96 08/29/16 04:00 08/29/16 07:16 08/29/16 07:16 08/29/16 07:16 08/29/16 07:16 Laboratory Results 08/29/16 04:35 08/29/16 04:35 08/28/16 08/29/16 08/30/16 05:59 05:59 05:59 Intake Total 400 600 Output Total 1550 1370 Balance -1150 -770 PT 14.8 SEC (12.0-15.0) 08/26/16 06:20 INR 1.16 (0.83-1.16) 08/26/16 06:20 Physical Exam - Physical Exam General Appearance: alert, obese EENT: PERRL/EOMI Neck: non-tender Respiratory: lungs clear Cardiac/Chest: systolic murmur, irregularly irregular, No edema, No gallop, No JVD Peripheral Pulses: 2+: carotid (R), carotid (L), femoral (R), femoral (L), dorsalis-pedis (R), dorsalis-pedis (L) Abdomen: normal bowel sounds, No guarding Skin: warm/dry Extremities: non-tender, No pedal edema Neuro/Psych: oriented x 3 ICD10 Worksheet Patient Problems: Problems Problem Status Onset Atrial fibrillation Acute Congestive heart failure Acute
--- NOTE | 2016-08-29 14:39 | HOSPPROG ---
Hospitalist Progress Note Assessment/Plan: * Acute on chronic systolic CHF exacerbation - EF 40% -down 27 kg since admission -now on PO torsemide + spironolactone per Dr. Boucher -increase lisinopril, stop norvasc * Non-ischemic cardiomyopathy - post-viral -cardiac cath with non-obstructive CAD (40% LAD lesion) * Afib -MAURILIO with KARISHMA clot - no cardioversion -coreg -Eliquis - reattempt MAURILIO/CV 6 weeks * Morbid obesity BMI 47 * DM II - am hypoglycemia improved with am lantus dosing -increase lantus back to home dose -restart metformin post cath 48 hours * Hyperlipidemia - LDL 19 -reduce Lipitor 10mg (per patient issue was high TG, not LDL) * Acute respiratory failure -wean O2 with diuresis * Gout - allopurinol * GENESIS - CPAP Home today >30 minutes on dc Subjective: ready for dc Objective: Vital Signs Temp Pulse Resp BP Pulse Ox 36.5 C 49 L 14 100/78 99 08/29/16 12:00 08/29/16 12:00 08/29/16 12:00 08/29/16 12:00 08/29/16 12:00 Laboratory Results 08/29/16 04:35 08/29/16 04:35 08/28/16 08/29/16 08/30/16 05:59 05:59 05:59 Intake Total 400 600 Output Total 1550 1370 425 Balance -1150 -770 -425 PT 14.8 SEC (12.0-15.0) 08/26/16 06:20 INR 1.16 (0.83-1.16) 08/26/16 06:20 - Physical Exam Constitutional: no apparent distress, appears nourished Eyes: PERRL, anicteric sclera Ears, Nose, Mouth, Throat: moist mucous membranes, hearing normal Cardiovascular: regular rate and rhythym, no murmur, rub, or gallop Respiratory: no respiratory distress, no rales or rhonchi Gastrointestinal: normoactive bowel sounds, soft, non-tender abdomen Genitourinary: no bladder fullness, No davis in urethra Skin: warm, normal color Musculoskeletal: full muscle strength, no muscle tenderness Neurologic: AAOx3, sensation intact bilaterally Psychiatric: interacting appropriately, not anxious Lymph, Heme, Immunologic: no cervical LAD ICD10 Worksheet Patient Problems: Problems Problem Status Onset Atrial fibrillation Acute Congestive heart failure Acute
[2016-08-29 15:10] VITALS: BP 88/51; PULSE 70; RESP 13; TEMP 97.5; O2SAT 96
== END 2016-08-29 16:41 | disposition home or self-care (01) | DRG 286 ==
LOC: F2W 15:25
PROVIDERS: ADMIT Hospitalist; ATTEND Hospitalist
PROC: 02HV33Z Insertion of Infusion Device into Superior Vena Cava, Percutaneous Approach (ICD-10-PCS; 2016-08-22)
PROC: B245ZZ4 Ultrasonography of Left Heart, Transesophageal (ICD-10-PCS; principal; 2016-08-26)
PROC: B2161ZZ Fluoroscopy of Right and Left Heart using Low Osmolar Contrast (ICD-10-PCS; principal; 2016-08-26)
PROC: B2111ZZ Fluoroscopy of Multiple Coronary Arteries using Low Osmolar Contrast (ICD-10-PCS; principal; 2016-08-26)
PROC: 4A023N8 Measurement of Cardiac Sampling and Pressure, Bilateral, Percutaneous Approach (ICD-10-PCS; principal; 2016-08-26)
PROC: 02HV33Z Insertion of Infusion Device into Superior Vena Cava, Percutaneous Approach (ICD-10-PCS; 2016-08-26)
DX: I50.43 Acute on chronic combined systolic (congestive) and diastolic (congestive) heart failure (principal); J96.01 Acute respiratory failure with hypoxia; I24.0 Acute coronary thrombosis not resulting in myocardial infarction; I42.9 Cardiomyopathy, unspecified; N17.9 Acute kidney failure, unspecified; I48.2 Chronic atrial fibrillation; E11.9 Type 2 diabetes mellitus without complications; I11.0 Hypertensive heart disease with heart failure; I49.3 Ventricular premature depolarization; I45.9 Conduction disorder, unspecified; E78.5 Hyperlipidemia, unspecified; M17.0 Bilateral primary osteoarthritis of knee; E66.01 Morbid (severe) obesity due to excess calories; M10.9 Gout, unspecified; G47.33 Obstructive sleep apnea (adult) (pediatric); Z68.42 Body mass index [BMI] 45.0-49.9, adult; Z88.2 Allergy status to sulfonamides; Z88.0 Allergy status to penicillin; Z79.4 Long term (current) use of insulin
CPT/HCPCS: 82088-90; 82947-QW; 84244-90; 97162-GP; 97166-GO; 97168-GO; 97530-GO; 97530-GP; 97535-GO; A9500; C1751; J0461; J0610; J1644; J1650; J1815; J1940; J2001; J2704; J2785; J3475; Q9957; Q9967

== ENCOUNTER → 2017-01-21 | Outpatient (CLI) | payer OTHER | LOC: FCPNEURO 23:06 | PROVIDERS: ATTEND Internal Medicine Sleep Medicine | DX: G47.33 Obstructive sleep apnea (adult) (pediatric) (principal); G47.36 Sleep related hypoventilation in conditions classified elsewhere; G47.61 Periodic limb movement disorder ==

== ENCOUNTER → 2017-09-06 | Outpatient (CLI) | payer MEDICAID | LOC: FIMAGING 08:19 | PROVIDERS: ATTEND Orthopaedic Surgery | DX: M17.0 Bilateral primary osteoarthritis of knee (principal); M11.262 Other chondrocalcinosis, left knee ==

== ENCOUNTER → 2017-11-23 | Outpatient (CLI) | payer MEDICAID | LOC: BMCIMAGING 08:47 | PROVIDERS: ATTEND Physician Assistant | DX: Z47.1 Aftercare following joint replacement surgery (principal); Z96.653 Presence of artificial knee joint, bilateral ==

== ENCOUNTER → 2018-01-03 | Outpatient (CLI) | payer MEDICAID | LOC: BMCIMAGING 14:30 | PROVIDERS: ATTEND Physician Assistant | DX: Z47.1 Aftercare following joint replacement surgery (principal); Z96.651 Presence of right artificial knee joint; Z96.652 Presence of left artificial knee joint ==